=== PATIENT | male | born 1930 | race African-American/Black ===

== ENCOUNTER 2018-01-26 11:29 | Inpatient (IN) | payer MEDICARE, MEDICAID ==
[~2018-01-26] VITALS: Ht 170.2 cm; Wt 70.3 kg
[~2018-01-26 11:29] MED LIST: ADVAIR 250-501 EACH INH; CARVEDILOL12.5 MG ORAL; FUROSEMIDE40 MG ORAL; LISINOPRIL20 MG ORAL; NAMENDA XR21 MG PO; OMEPRAZOLE20 M2 ORAL; ROPINIROLE HC0.25 MG PO; SPIRIVA18 MCG INH
[2018-01-26 11:42] VITALS: BP 84/52
--- NOTE | 2018-01-26 11:51 | Emergency Room Report ---
History of Present Illness General Chief Complaint: Dyspnea/Respdistress Source: Patient Present Illness HPI Patient presents with weakness and right great toe pain. This been going on for several days. He is unable to ambulate at this time. He's been eating okay. He's never had pain like this before. The pain is 9/10 at this time, burning and constant. He also feels weak on his feet like his legs are "giving way" on him. He takes a blood pressure medication and took dose this AM. The patient denies chest pain, palpitations, nausea, vomiting, diarrhea, dysuria , melena. No rashes. Denies depression. H/O CHF in past. Prior renal function minimally elevated. Allergies: Coded Allergies: NO KNOWN DRUG ALLERGIES (Verified Allergy, Unknown, 06/20/15) Patient History Past Medical History: see triage record Social History: Denies: smoking - former, alcohol use, drug use Social History Narrative assisted living Reviewed Nursing Documentation: PMH: Agreed; PSxH: Agreed Nursing Documentation-PMH Past Medical History: No History, Except For Hx Cardiac Problems: Yes - CHF Hx Hypertension: Yes Hx Asthma: Yes Hx COPD: Yes Hx Cancer: No Hx Gastrointestinal Problems: Yes Hx Neurological Problems: Yes - Seizure Hx Cerebrovascular Accident: Yes Review of Systems All Other Systems: negative except mentioned in HPI Physical Exam Vital Signs Date Time Temp Pulse Resp B/P (MAP) Pulse Ox O2 Delivery O2 Flow Rate FiO2 01/26/18 11:30 98.4 62 22 84/52 89 Nasal Cannula 2.0 98.4 Sp02 EP Interpretation: reviewed, normal General Appearance: well appearing, no apparent distress, GCS 15, thin Head: normocephalic Eyes: bilateral eye normal inspection, bilateral eye PERRL ENT: moist mucus membranes Neck: supple Respiratory: lungs clear, normal breath sounds Cardiovascular #1: regular rate, rhythm Cardiovascular #2: 2+ radial (R) Gastrointestinal: normal inspection, normal bowel sounds, non tender, no mass, non-distended, scaphoid Genitourinary: no CVA tenderness Musculoskeletal: back normal, gait/station normal, normal range of motion, tender - 1st MTP R foot Neurologic: alert, oriented x3, grossly normal Psychiatric: mood/affect normal Skin: normal inspection, warm/dry, other - no erythema or warmth 1st MTP Right foot Medical Decision Making Diagnostic Impression: Primary Impression: Acute renal failure Qualified Codes: N17.9 - Acute kidney failure, unspecified Additional Impressions: Podagra Hypotension (arterial) Qualified Codes: I95.9 - Hypotension, unspecified Uremia ER Course Patient presents with bilateral leg weakness, hypotension and pain in his first metatarsal phalangeal joint on the right-hand side. Differential includes AMI, dehydration, sepsis, acute renal failure, electrolyte abnormalities, gallops amongst others. The patient will be evaluated with labs, EKG, chest x-ray. The patient will receive gentle IV hydration and dose of Toradol. EKG with sinus bradycardia and nonspecific ST-T wave changes. Chest x-ray tortuous aorta and some COPD. No infiltrates. Foot x-ray is remarkable for degenerative changes. Labs new renal failure with BUN of 110 creatinine of 3.8. The last results we have mild renal insufficiency from 2015. In addition of uric acid is 10.1 securing a diagnosis of gout. The patient is somewhat improved after Toradol in terms of pain. Colchicine is given to the patient also. Due to renal failure, transient hypotension, admit telemetry. Calling Dr. Perez. Dr. Perez accepts patient. Dr. Perez examined patient in ED. Laboratory Tests Test 01/26/18 12:10 White Blood Count 5.7 K/UL (4.8-10.8) Red Blood Count 3.84 M/UL (4.70-6.10) L Hemoglobin 12.0 G/DL (14.2-18.0) L Hematocrit 36.2 % (42.0-52.0) L Mean Corpuscular Volume 94 FL (80-99) Mean Corpuscular Hemoglobin 31.1 PG (27.0-31.0) H Mean Corpuscular Hemoglobin Concent 33.0 G/DL (32.0-36.0) Red Cell Distribution Width 13.9 % (11.6-14.8) Platelet Count 131 K/UL (150-450) L Mean Platelet Volume 6.4 FL (6.5-10.1) L Neutrophils (%) (Auto) 57.5 % (45.0-75.0) Lymphocytes (%) (Auto) 27.4 % (20.0-45.0) Monocytes (%) (Auto) 10.7 % (1.0-10.0) H Eosinophils (%) (Auto) 3.5 % (0.0-3.0) H Basophils (%) (Auto) 1.0 % (0.0-2.0) Erythrocyte Sedimentation Rate 38 MM/HR (0-20) H Prothrombin Time 12.1 SEC (9.30-11.50) H Prothrombin Time INR 1.2 (0.9-1.1) H PTT 25 SEC (23-33) Urine Color Pale yellow Urine Appearance Clear Urine pH 5 (4.5-8.0) Urine Specific [place] 1.015 (1.005-1.035) Urine Protein Negative (NEGATIVE) Urine Glucose (UA) Negative (NEGATIVE) Urine Ketones Negative (NEGATIVE) Urine Occult Blood Negative (NEGATIVE) Urine Nitrite Negative (NEGATIVE) Urine Bilirubin Negative (NEGATIVE) Urine Urobilinogen Normal MG/DL (0.0-1.0) Urine Leukocyte Esterase Negative (NEGATIVE) Sodium Level 139 MMOL/L (136-145) Potassium Level 4.4 MMOL/L (3.5-5.1) Chloride Level 106 MMOL/L (98-107) Carbon Dioxide Level 16 MMOL/L (21-32) L Anion Gap 17 mmol/L (5-15) H Blood Urea Nitrogen 110 mg/dL (7-18) H Creatinine 3.8 MG/DL (0.55-1.30) H Estimate Glomerular Filtration Rate mL/min (>60) Glucose Level 91 MG/DL (74-106) Uric Acid 10.7 MG/DL (2.6-7.2) H Calcium Level 8.8 MG/DL (8.5-10.1) Total Bilirubin 0.4 MG/DL (0.2-1.0) Aspartate Amino Transferase (AST) 19 U/L (15-37) Alanine Aminotransferase (ALT) 21 U/L (12-78) Alkaline Phosphatase 45 U/L (46-116) L Total Creatine Kinase 216 U/L (26-308) Troponin I 0.047 ng/mL (0.000-0.056) Pro-B-Type Natriuretic Peptide 1230 pg/mL (0-125) H Total Protein 7.5 G/DL (6.4-8.2) Albumin 3.8 G/DL (3.4-5.0) Globulin 3.7 g/dL Albumin/Globulin Ratio 1.0 (1.0-2.7) Thyroid Stimulating Hormone (TSH) 1.236 uiU/mL (0.358-3.740) EKG Diagnostic Results Rate: bradycardiac ST Segments: no acute changes Rhythm Strip Diag. Results EP Interpretation: yes Rhythm: no PVC's, no ectopy, other - Sinus bradycardia Chest X-Ray Diagnostic Results Chest X-Ray Diagnostic Results : Chest X-Ray Ordered: Yes # of Views/Limited/Complete: 1 View Indication: Other Interpretation: no consolidation, no effusion, no pneumothorax, other - Tortuous aorta Impression: Other Electronically Signed by: Electronically signed by Alex Zhou MD Other X-Ray Diagnostic Results Other X-Ray Diagnostic Results : X-Ray ordered: Right foot # of Views/Limited Vs Complete: 3 View Indication: Pain Interpretation: no dislocation, no soft tissue swelling, no fractures, other - Degenerative disease Impression: Other Electronically Signed by: Electronically signed by Alex Zhou MD Last Vital Signs Date Time Temp Pulse Resp B/P (MAP) Pulse Ox O2 Delivery O2 Flow Rate FiO2 01/26/18 18:22 98.6 58 20 118/60 89 Nasal Cannula 2.0 98.6 Status: unchanged Disposition: ADMITTED INPATIENT Condition: Serious Alex Zhou M.D. Jan 26, 2018 11:51
[2018-01-26] MEDS ORDERED: Ketorolac 30mg Inj IV ONE (12:00)
[2018-01-26] MEDS ORDERED: Sodium Chloride 500ML 500 ML IV ONE (12:00)
[2018-01-26 12:33] LABS: EOSINOPHILS % (AUTO) 3.5 % (0.0-3.0); HEMATOCRIT 36.2 % (42.0-52.0); LYMPHOCYTES % (AUTO) 27.4 % (20.0-45.0); MEAN CORPUSCULAR VOLUME 94 FL (80-99); MONOCYTES % (AUTO) 10.7 % (1.0-10.0); NEUTROPHILS % (AUTO) 57.5 % (45.0-75.0); PLATELET COUNT 131 K/UL (150-450); RED BLOOD COUNT 3.84 M/UL (4.70-6.10); RED CELL DISTRIBUTION WIDTH 13.9 % (11.6-14.8); WHITE BLOOD COUNT 5.7 K/UL (4.8-10.8)
[2018-01-26 12:37] LABS: APPEARANCE,URINE CLEAR; BILIRUBIN, URINE NEGATIVE (NEGATIVE); COLOR,URINE PALE YELLOW; GLUCOSE, URINE (UA) NEGATIVE (NEGATIVE); KETONES,URINE NEGATIVE (NEGATIVE); LEUKOCYTE ESTERASE ,URINE NEGATIVE (NEGATIVE); NITRITE,URINE NEGATIVE (NEGATIVE); PH,URINE 5 (4.5-8.0); PROTEIN,URINE NEGATIVE (NEGATIVE); UROBILINOGEN,URINE NORMAL MG/DL (0.0-1.0)
[2018-01-26 12:39] LABS: INR 1.2 (0.9-1.1)
[2018-01-26 12:43] LABS: ANION GAP 17 mmol/L (5-15); BLOOD UREA NITROGEN 110 mg/dL (7-18); CALCIUM 8.8 MG/DL (8.5-10.1); CARBON DIOXIDE 16 MMOL/L (21-32); CHLORIDE 106 MMOL/L (98-107); CREATININE 3.8 MG/DL (0.55-1.30); POTASSIUM 4.4 MMOL/L (3.5-5.1); SODIUM 139 MMOL/L (136-145)
[2018-01-26 12:55] LABS: ALANINE AMINOTRANSFERASE 21 U/L (12-78); ALBUMIN 3.8 G/DL (3.4-5.0); ALKALINE PHOSPHATASE 45 U/L (46-116); ASPARTATE AMINO TRANSFERASE 19 U/L (15-37); BILIRUBIN,TOTAL 0.4 MG/DL (0.2-1.0); CREATINE KINASE 216 U/L (26-308)
--- NOTE | 2018-01-26 13:29 | Diagnostic Imaging Report ---
Indication: Chest pain Comparison: 06/20/2015 A single view chest radiograph was obtained. Findings: Lungs are clear. Aorta is moderately ectatic. Heart size is normal. Bones are unremarkable. IMPRESSION: No acute disease
--- NOTE | 2018-01-26 13:52 | Diagnostic Imaging Report ---
Indication: Foot Pain Comparison: None Findings: 3 views of the right foot were obtained. No acute fractures, malalignment, erosions or periostitis are identified. Soft tissues are unremarkable. Impression: No acute findings.
[2018-01-26 15:29] VITALS: BP 108/51
[2018-01-26] MEDS ORDERED: Albuterol/Ipratropium 3ml neb HHN PRN (15:45)
[2018-01-26 16:52] VITALS: BP 112/58
[2018-01-26 18:22] VITALS: BP 118/60
[2018-01-26] MEDS: Heparin 5000 units/ml inj SUBQ SCH (21:00)
[2018-01-26 21:23] VITALS: BP 136/72
[2018-01-26 21:35] VITALS: BP 134/83
[2018-01-27] VITALS: BP 122/77
--- NOTE | 2018-01-27 00:17 | History and Physical Report ---
DATE OF ADMISSION: 01/26/2018 CHIEF COMPLAINT: Weakness. HISTORY OF PRESENT ILLNESS: The patient is an 87-year-old male, who lives in a [facility]. The patient has multiple medical problems. I saw this patient last week during routine visit to his [facility]. The patient was at his usual baseline. During the last three weeks, the patient has noticed decline in his health. The patient noticed increased fatigue. His appetite decreased significantly. The patient became bedridden. He denies shortness of breath. The patient was sent to this emergency department. PAST MEDICAL HISTORY: 1. 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 2. 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 3. Hypertensive cardiovascular disease. 4. Chronic obstructive pulmonary disease. 5. Mild organic brain syndrome. MEDICATIONS: Coreg, Lasix, lisinopril, Namenda, omeprazole, ropinirole, Advair Diskus, and Spiriva. ALLERGIES: No known drug allergies. FAMILY HISTORY: Unremarkable. SOCIAL HISTORY: He lives in a [facility]. HABITS: He is a past heavy cigarette smoker, who quit several years ago. REVIEW OF SYSTEMS: HEENT: Hearing and eyesight are normal. ENDOCRINE: No history of diabetes, thyroid, or adrenal problems. RESPIRATORY: Significant for orthopnea, PND and dyspnea on slight efforts. GASTROINTESTINAL : No history of hematochezia, melena, hematemesis, diarrhea, or constipation. MUSCULOSKELETAL: Significant for mild degenerative joint disease. NEUROLOGICAL: No history of stroke, syncope, or Parkinson disease. PHYSICAL EXAMINATION: GENERAL: This is an elderly male, who is currently in no acute distress. VITAL SIGNS: Blood pressure 84/52, pulse 62 and regular, respirations 22, temperature 98.4, and O2 saturation is 92% on 2 liters/minute nasal cannula. HEENT: The head is normocephalic and atraumatic. Pupils are equal, round, and reactive to light and accommodation consensually. NECK: Supple. Trachea midline. There was no lymphadenopathy or thyromegaly. LUNGS: Bilateral crackles. HEART: Regular rate and rhythm without rubs, murmurs, or gallops. ABDOMEN: Soft and nontender. Bowel sounds were active. EXTREMITIES: Cold to touch. No clubbing, cyanosis, or edema were noted. NEUROLOGICAL: He is alert and oriented x4. Cranial nerves II through XII intact. LABORATORY AND ANCILLARY DATA: CBC, hemoglobin 12, otherwise within normal limits. Serum chemistry, electrolytes within normal limits. Anion gap 17. BUN 110 and creatinine 3.8. Uric acid 10.7. Zko-A-bgfwvqmovaj peptide 1230. IMAGING REPORTS: An x-ray of the foot, no acute findings. Chest x-ray, lungs are clear. 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 ASSESSMENT: 1. Volume depletion. 2. Acute decline in GFR due to prerenal azotemia, most likely due to over diuresis. 3. 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 Systolic LV Dysfunction. 4. 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 5. Hypertensive cardiovascular disease. 6. Chronic obstructive pulmonary disease. 7. Mild organic brain syndrome. 8. NYHA Class 3. PLAN: 1. Cautious IV fluid rehydration. 2. Of note, the patient received Toradol IV in the emergency department and currently high risk for ATN. 3. Patient was declined before for AICD but my need to be reconsidered. Shi Perez M.D. DR: CHERIE JOB#: [id number] CC: CATA
[2018-01-27 04:00] VITALS: BP 128/69
[2018-01-27 07:58] LABS: BASOPHILS % (AUTO) 2.3 % (0.0-2.0); EOSINOPHILS % (AUTO) 4.1 % (0.0-3.0); HEMATOCRIT 37.3 % (42.0-52.0); HEMOGLOBIN 12.3 G/DL (14.2-18.0); LYMPHOCYTES % (AUTO) 26.1 % (20.0-45.0); MEAN CORPUSCULAR VOLUME 95 FL (80-99); MONOCYTES % (AUTO) 12.2 % (1.0-10.0); NEUTROPHILS % (AUTO) 55.4 % (45.0-75.0); PLATELET COUNT 127 K/UL (150-450); RED BLOOD COUNT 3.93 M/UL (4.70-6.10); RED CELL DISTRIBUTION WIDTH 14.4 % (11.6-14.8); WHITE BLOOD COUNT 5.1 K/UL (4.8-10.8)
[2018-01-27 08:00] VITALS: BP 113/53
[2018-01-27 08:30] LABS: ANION GAP 16 mmol/L (5-15); BLOOD UREA NITROGEN 97 mg/dL (7-18); CARBON DIOXIDE 17 MMOL/L (21-32); CHLORIDE 110 MMOL/L (98-107); CREATININE 2.8 MG/DL (0.55-1.30); SODIUM 142 MMOL/L (136-145)
--- NOTE | 2018-01-27 08:32 | Nephrology Progress Note ---
Assessment/Plan Plan Severe Volume depletion - slow hydration. Cautious with h/o severe CHF! (LVEF 20 %). 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 Subjective Subjective Feels better. Better urine output. Positional dizziness. Objective Objective Last 24 Hour Vital Signs Date Time Temp Pulse Resp B/P (MAP) Pulse Ox O2 Delivery O2 Flow Rate FiO2 01/27/18 04:00 46 01/27/18 04:00 97.0 68 20 128/69 (88) 97 97.0 01/27/18 02:45 Nasal Cannula 2.0 01/27/18 00:00 96.8 63 20 122/77 (92) 96 96.8 01/27/18 00:00 55 01/26/18 21:40 97.6 55 22 134/83 97 Nasal Cannula 2.0 97.6 56 01/26/18 21:35 97.6 56 22 134/83 (100) 97 97.6 01/26/18 21:23 97.8 55 16 136/72 90 Nasal Cannula 2.0 97.8 01/26/18 18:22 98.6 58 20 118/60 89 Nasal Cannula 2.0 98.6 01/26/18 16:52 98.6 62 22 112/58 88 Nasal Cannula 2.0 98.6 01/26/18 15:29 98.6 60 22 108/51 89 Nasal Cannula 2.0 98.6 01/26/18 12:13 98.4 01/26/18 11:42 98.4 62 22 84/52 89 Nasal Cannula 2.0 98.4 01/26/18 11:42 62 22 Nasal Cannula 2.0 01/26/18 11:30 98.4 62 22 84/52 89 Nasal Cannula 2.0 98.4 Intake and Output 01/26/18 01/27/18 19:00 07:00 Output Total 0 ml Balance 0 ml Output Urine Total 0 ml # Voids 1 Laboratory Tests 01/26/18 12:10: White Blood Count 5.7, Red Blood Count 3.84L, Hemoglobin 12.0L, Hematocrit 36.2L , Mean Corpuscular Volume 94, Mean Corpuscular Hemoglobin 31.1H, Mean Corpuscular Hemoglobin Concent 33.0, Red Cell Distribution Width 13.9, Platelet Count 131L, Mean Platelet Volume 6.4L, Neutrophils (%) (Auto) 57.5, Lymphocytes (%) (Auto) 27.4, Monocytes (%) (Auto) 10.7H, Eosinophils (%) (Auto) 3.5H, Basophils (%) (Auto) 1.0, Erythrocyte Sedimentation Rate 38H, Prothrombin Time 12.1H, Prothromb Time International Ratio 1.2H, Activated Partial Thromboplast Time 25, Urine Color Pale yellow, Urine Appearance Clear, Urine pH 5, Urine Specific [place] 1.015, Urine Protein Negative, Urine Glucose (UA) Negative, Urine Ketones Negative, Urine Occult Blood Negative, Urine Nitrite Negative, Urine Bilirubin Negative, Urine Urobilinogen Normal, Urine Leukocyte Esterase Negative, Sodium Level 139, Potassium Level 4.4, Chloride Level 106, Carbon Dioxide Level 16L, Anion Gap 17H, Blood Urea Nitrogen 110H, Creatinine 3.8H, Estimat Glomerular Filtration Rate , Glucose Level 91, Uric Acid 10.7H, Calcium Level 8.8, Total Bilirubin 0.4, Aspartate Amino Transf (AST/SGOT) 19, Alanine Aminotransferase (ALT/SGPT) 21, Alkaline Phosphatase 45L, Total Creatine Kinase 216, Troponin I 0.047, Pro-B-Type Natriuretic Peptide 1230H, Total Protein 7.5, Albumin 3.8, Globulin 3.7, Albumin/Globulin Ratio 1.0, Thyroid Stimulating Hormone (TSH) 1.236 01/26/18 19:31: Lactic Acid Level 0.30L 01/27/18 07:10: White Blood Count 5.1, Red Blood Count 3.93L, Hemoglobin 12.3L, Hematocrit 37.3L , Mean Corpuscular Volume 95, Mean Corpuscular Hemoglobin 31.4H, Mean Corpuscular Hemoglobin Concent 33.0, Red Cell Distribution Width 14.4, Platelet Count 127L, Mean Platelet Volume 6.6, Neutrophils (%) (Auto) 55.4, Lymphocytes ( %) (Auto) 26.1, Monocytes (%) (Auto) 12.2H, Eosinophils (%) (Auto) 4.1H, Basophils (%) (Auto) 2.3H, Sodium Level [Pending], Potassium Level [Pending], Chloride Level [Pending], Carbon Dioxide Level [Pending], Blood Urea Nitrogen [ Pending], Creatinine [Pending], Estimat Glomerular Filtration Rate [Pending], Glucose Level [Pending], Calcium Level [Pending] Height (Feet): 5 Height (Inches): 7.00 Weight (Pounds): 152 Objective Hard of hearing. CV RR Lungs CTA Abd SNT. BS + E no CCE Shi Perez MD Jan 27, 2018 08:32
[2018-01-27] MEDS: Heparin 5000 units/ml inj SUBQ SCH ×2 (08:34→20:53)
[2018-01-27] MEDS: Aspirin EC 325mg tab ORAL SCH (08:43)
[2018-01-27 12:00] VITALS: BP 119/61
[2018-01-27 16:09] VITALS: BP 109/54
[2018-01-27 20:00] VITALS: BP 147/55
[2018-01-28] VITALS: BP 127/56
[2018-01-28 04:00] VITALS: BP 137/60
[2018-01-28 07:54] LABS: BASOPHILS % (AUTO) 2.6 % (0.0-2.0); EOSINOPHILS % (AUTO) 8.9 % (0.0-3.0); HEMATOCRIT 38.9 % (42.0-52.0); HEMOGLOBIN 12.9 G/DL (14.2-18.0); LYMPHOCYTES % (AUTO) 31.6 % (20.0-45.0); MEAN CORPUSCULAR VOLUME 96 FL (80-99); MONOCYTES % (AUTO) 11.7 % (1.0-10.0); NEUTROPHILS % (AUTO) 45.2 % (45.0-75.0); PLATELET COUNT 130 K/UL (150-450); RED BLOOD COUNT 4.07 M/UL (4.70-6.10); RED CELL DISTRIBUTION WIDTH 14.3 % (11.6-14.8); WHITE BLOOD COUNT 4.4 K/UL (4.8-10.8)
[2018-01-28 08:00] VITALS: BP 128/71
[2018-01-28 08:15] LABS: ANION GAP 14 mmol/L (5-15); BLOOD UREA NITROGEN 73 mg/dL (7-18); CALCIUM 8.1 MG/DL (8.5-10.1); CARBON DIOXIDE 17 MMOL/L (21-32); CHLORIDE 110 MMOL/L (98-107); POTASSIUM 3.9 MMOL/L (3.5-5.1); SODIUM 141 MMOL/L (136-145)
--- NOTE | 2018-01-28 08:54 | Nephrology Progress Note ---
Assessment/Plan Plan Severe Volume depletion - slow hydration. Cautious with h/o severe CHF! (LVEF 20 %). Severe Syslotic CMP JASS on CKD - monitor labs BUN down to 73 creat nu to 2. Stop IV hydration. Subjective Subjective Feels better. Better urine output. Positional dizziness. Objective Objective Last 24 Hour Vital Signs Date Time Temp Pulse Resp B/P (MAP) Pulse Ox O2 Delivery O2 Flow Rate FiO2 01/28/18 04:17 51 01/28/18 04:00 97.2 51 20 137/60 (85) 100 97.2 01/28/18 00:00 97.0 51 20 127/56 (79) 98 97.0 01/27/18 23:59 49 01/27/18 21:22 58 20 Nasal Cannula 2.0 28 01/27/18 21:21 Nasal Cannula 2.0 28 01/27/18 21:21 98 Nasal Cannula 2.0 28 01/27/18 21:00 Nasal Cannula 2.0 01/27/18 20:00 97.0 58 18 147/55 (85) 98 97.0 01/27/18 19:45 51 01/27/18 16:09 97.8 58 18 109/54 (72) 98 97.8 01/27/18 16:00 47 01/27/18 12:00 97.9 71 18 119/61 (80) 97 97.9 01/27/18 12:00 50 01/27/18 09:00 Nasal Cannula 2.0 Intake and Output 01/27/18 01/28/18 19:00 07:00 Output Total 900 ml Balance -900 ml Output Urine Total 900 ml # Voids 3 Laboratory Tests 01/28/18 06:35: White Blood Count 4.4L, Red Blood Count 4.07L, Hemoglobin 12.9L, Hematocrit 38.9L, Mean Corpuscular Volume 96, Mean Corpuscular Hemoglobin 31.7H, Mean Corpuscular Hemoglobin Concent 33.1, Red Cell Distribution Width 14.3, Platelet Count 130L, Mean Platelet Volume 6.5, Neutrophils (%) (Auto) 45.2, Lymphocytes ( %) (Auto) 31.6, Monocytes (%) (Auto) 11.7H, Eosinophils (%) (Auto) 8.9H, Basophils (%) (Auto) 2.6H, Sodium Level 141, Potassium Level 3.9, Chloride Level 110H, Carbon Dioxide Level 17L, Anion Gap 14, Blood Urea Nitrogen 73H, Creatinine 2.0H, Estimat Glomerular Filtration Rate , Glucose Level 75, Calcium Level 8.1L Height (Feet): 5 Height (Inches): 7.00 Weight (Pounds): 152 Objective Hard of hearing. CV RR Lungs CTA Abd SNT. BS + E no CCE Shi Perez MD Jan 28, 2018 08:54
[2018-01-28] MEDS: Aspirin EC 325mg tab ORAL SCH (09:39)
[2018-01-28] MEDS: Heparin 5000 units/ml inj SUBQ SCH ×2 (09:41→21:01)
[2018-01-28 12:00] VITALS: BP 117/75
[2018-01-28 16:00] VITALS: BP 121/69
[2018-01-28 20:00] VITALS: BP 138/72
[2018-01-29] VITALS: BP 135/55
[2018-01-29 04:00] VITALS: BP 139/70
[2018-01-29 07:38] LABS: BASOPHILS % (AUTO) 2.2 % (0.0-2.0); EOSINOPHILS % (AUTO) 7.9 % (0.0-3.0); HEMATOCRIT 40.8 % (42.0-52.0); HEMOGLOBIN 13.4 G/DL (14.2-18.0); LYMPHOCYTES % (AUTO) 31.1 % (20.0-45.0); MEAN CORPUSCULAR VOLUME 95 FL (80-99); MONOCYTES % (AUTO) 13.8 % (1.0-10.0); PLATELET COUNT 148 K/UL (150-450); RED BLOOD COUNT 4.29 M/UL (4.70-6.10); RED CELL DISTRIBUTION WIDTH 14.2 % (11.6-14.8); WHITE BLOOD COUNT 4.8 K/UL (4.8-10.8)
[2018-01-29 08:00] VITALS: BP 114/53
[2018-01-29 08:10] LABS: ANION GAP 10 mmol/L (5-15); BLOOD UREA NITROGEN 50 mg/dL (7-18); CALCIUM 8.4 MG/DL (8.5-10.1); CARBON DIOXIDE 22 MMOL/L (21-32); CHLORIDE 110 MMOL/L (98-107); CREATININE 1.5 MG/DL (0.55-1.30); POTASSIUM 3.9 MMOL/L (3.5-5.1); SODIUM 142 MMOL/L (136-145)
--- NOTE | 2018-01-29 09:06 | Nephrology Progress Note ---
Assessment/Plan Plan Severe Volume depletion - slow hydration. Cautious with h/o severe CHF! (LVEF 20 %). Severe Syslotic CMP JASS on CKD - monitor labs BUN down to 50's creat nu to 1.5. Stop IV hydration. Subjective Subjective Feels better. Better urine output. Positional dizziness. Objective Objective Last 24 Hour Vital Signs Date Time Temp Pulse Resp B/P (MAP) Pulse Ox O2 Delivery O2 Flow Rate FiO2 01/29/18 04:00 98.0 55 21 139/70 (93) 99 98.0 01/29/18 03:59 53 01/29/18 00:00 97.0 55 20 135/55 (81) 98 97.0 01/28/18 23:30 56 01/28/18 21:00 Nasal Cannula 2.0 01/28/18 20:38 96 Nasal Cannula 2.0 28 01/28/18 20:38 Nasal Cannula 2.0 28 01/28/18 20:38 63 20 Nasal Cannula 2.0 28 01/28/18 20:00 55 55 62 01/28/18 20:00 98.0 55 20 138/72 (94) 97 98.0 01/28/18 19:06 56 01/28/18 16:00 63 01/28/18 16:00 97.7 58 18 121/69 (86) 100 97.7 01/28/18 12:00 97.3 51 19 117/75 (89) 100 97.3 01/28/18 12:00 51 Intake and Output 01/28/18 01/29/18 19:00 07:00 Intake Total 1240 ml 840 ml Output Total 2100 ml Balance 1240 ml -1260 ml Intake Oral 840 ml 840 ml IV Total 400 ml Output Urine Total 2100 ml # Voids 6 6 # Bowel Movements 1 Laboratory Tests 01/29/18 06:15: White Blood Count 4.8, Red Blood Count 4.29L, Hemoglobin 13.4L, Hematocrit 40.8L , Mean Corpuscular Volume 95, Mean Corpuscular Hemoglobin 31.2H, Mean Corpuscular Hemoglobin Concent 32.8, Red Cell Distribution Width 14.2, Platelet Count 148L, Mean Platelet Volume 7.0, Neutrophils (%) (Auto) 45.0, Lymphocytes ( %) (Auto) 31.1, Monocytes (%) (Auto) 13.8H, Eosinophils (%) (Auto) 7.9H, Basophils (%) (Auto) 2.2H, Sodium Level 142, Potassium Level 3.9, Chloride Level 110H, Carbon Dioxide Level 22, Anion Gap 10, Blood Urea Nitrogen 50H, Creatinine 1.5H, Estimat Glomerular Filtration Rate , Glucose Level 80, Calcium Level 8.4L Height (Feet): 5 Height (Inches): 7.00 Weight (Pounds): 152 Objective Hard of hearing. CV RR Lungs CTA Abd SNT. BS + E no CCE Shi Perez MD Jan 29, 2018 09:06
[2018-01-29] MEDS: Aspirin EC 325mg tab ORAL SCH (09:21)
[2018-01-29] MEDS: Heparin 5000 units/ml inj SUBQ SCH ×2 (09:21→20:24)
[2018-01-29 12:00] VITALS: BP 118/54
--- NOTE | 2018-01-29 12:20 | Cardiology Report ---
APPROVED REPORT EKG Measurement Heart [id number] Sinus bradycardia Otherwise normal ECG
--- NOTE | 2018-01-29 13:15 | Cardiology Report ---
APPROVED REPORT EXAM: Two-dimensional and M-mode echocardiogram with Doppler and color Doppler. INDICATION Congestive Heart Failure M-Mode DIMENSIONS IVSd1.5 (0.7-1.1cm)Left Atrium (MM)5.5 (1.6-4.0cm) LVDd5.1 (3.5-5.6cm)Aortic Root3.5 (2.0-3.7cm) PWd1.2 (0.7-1.1cm)Aortic Cusp Exc.2.2 (1.5-2.0cm) LVDs3.7 (2.5-4.0cm) PWs1.9 cm Normal left ventricular chamber size, systolic function and wall motion. Left ventricular ejection fraction estimated to be 55 %. Mild left ventricular hypertrophy. Anterior Echo-free space, may be due to pericardial fat or effusion. All other cardiac chamber sizes are within normal limits. Mobile Umttd-Dfhove-Zldmeq motion. Focal aortic valve sclerosis with mildly reduced cusp excursion. Mildly thickened mitral valve leaflets with normal excursion. Mild mitral annulus and aortic root calcification. Pulmonic valve not well visualized. Normal tricuspid valve structure. IVC is normal in size with physiological collapse. A color flow and spectral Doppler study was performed and revealed: Moderate aortic insufficiency. Peak aortic valve gradient of 10 mmHg and a mean of 5 mmHg. Trace mitral regurgitation. Mitral diastolic velocities suggest mild left ventricular diastolic dysfunction (Grade I). Mild tricuspid regurgitation. Tricuspid systolic velocities suggests peak right ventricular systolic pressure of 52 mmHg, consistent with moderate pulmonary hypertension. No pulmonic regurgitation present.
[2018-01-29 15:47] VITALS: BP 131/67
[2018-01-29 20:00] VITALS: BP 120/49
[2018-01-30] VITALS: BP 117/51
[2018-01-30 04:00] VITALS: BP 155/72
[2018-01-30 07:17] LABS: BASOPHILS % (AUTO) 2.1 % (0.0-2.0); EOSINOPHILS % (AUTO) 7.5 % (0.0-3.0); HEMATOCRIT 37.1 % (42.0-52.0); HEMOGLOBIN 12.6 G/DL (14.2-18.0); LYMPHOCYTES % (AUTO) 31.5 % (20.0-45.0); MEAN CORPUSCULAR VOLUME 95 FL (80-99); MONOCYTES % (AUTO) 12.2 % (1.0-10.0); NEUTROPHILS % (AUTO) 46.7 % (45.0-75.0); PLATELET COUNT 139 K/UL (150-450); RED BLOOD COUNT 3.93 M/UL (4.70-6.10); RED CELL DISTRIBUTION WIDTH 14.3 % (11.6-14.8); WHITE BLOOD COUNT 5.4 K/UL (4.8-10.8)
[2018-01-30 07:52] LABS: ANION GAP 5 mmol/L (5-15); CALCIUM 8.2 MG/DL (8.5-10.1); CARBON DIOXIDE 25 MMOL/L (21-32); CHLORIDE 111 MMOL/L (98-107); CREATININE 1.3 MG/DL (0.55-1.30); POTASSIUM 4.5 MMOL/L (3.5-5.1); SODIUM 141 MMOL/L (136-145)
[2018-01-30 07:58] LABS: BLOOD UREA NITROGEN 41 mg/dL (7-18)
[2018-01-30 08:00] VITALS: BP 109/52
[2018-01-30] MEDS: Heparin 5000 units/ml inj SUBQ SCH ×2 (09:00→20:24)
[2018-01-30] MEDS: Aspirin EC 325mg tab ORAL SCH (09:05)
[2018-01-30 12:00] VITALS: BP 139/61
--- NOTE | 2018-01-30 15:30 | Nephrology Progress Note ---
Assessment/Plan Plan Severe Volume depletion - slow hydration. Cautious with h/o severe CHF! (LVEF 20 %). Severe Syslotic CMP JASS on CKD - monitor labs BUN down to 41 creat nu to 1.3 which is below his baseline!! Has PVCS Check CXR!! Subjective Subjective Feels better. Better urine output. Positional dizziness. Objective Objective Last 24 Hour Vital Signs Date Time Temp Pulse Resp B/P (MAP) Pulse Ox O2 Delivery O2 Flow Rate FiO2 01/30/18 09:00 Nasal Cannula 2.0 01/30/18 08:10 69 01/30/18 08:05 61 01/30/18 08:00 69 01/30/18 08:00 97.5 61 18 109/52 (71) 100 97.5 01/30/18 08:00 61 01/30/18 04:00 61 01/30/18 04:00 98.0 63 21 155/72 (99) 100 98.0 01/30/18 00:00 59 01/30/18 00:00 98.0 56 20 117/51 (73) 100 98.0 01/29/18 21:00 Nasal Cannula 2.0 01/29/18 20:10 73 01/29/18 20:05 65 01/29/18 20:00 58 01/29/18 20:00 98.1 57 20 120/49 (72) 98 98.1 01/29/18 20:00 55 01/29/18 19:18 97 Nasal Cannula 2.0 28 01/29/18 19:18 Nasal Cannula 2.0 28 01/29/18 19:13 68 20 Nasal Cannula 2.0 28 01/29/18 16:00 56 01/29/18 15:47 98.6 68 20 131/67 (88) 100 98.6 Intake and Output 01/29/18 01/30/18 19:00 07:00 Intake Total 960 ml Output Total 650 ml 700 ml Balance 310 ml -700 ml Intake Oral 960 ml Output Urine Total 650 ml 700 ml # Voids 3 Laboratory Tests 01/30/18 06:30: White Blood Count 5.4, Red Blood Count 3.93L, Hemoglobin 12.6L, Hematocrit 37.1L , Mean Corpuscular Volume 95, Mean Corpuscular Hemoglobin 32.0H, Mean Corpuscular Hemoglobin Concent 33.9, Red Cell Distribution Width 14.3, Platelet Count 139L, Mean Platelet Volume 7.3, Neutrophils (%) (Auto) 46.7, Lymphocytes ( %) (Auto) 31.5, Monocytes (%) (Auto) 12.2H, Eosinophils (%) (Auto) 7.5H, Basophils (%) (Auto) 2.1H, Sodium Level 141, Potassium Level 4.5, Chloride Level 111H, Carbon Dioxide Level 25, Anion Gap 5, Blood Urea Nitrogen 41H, Creatinine 1.3, Estimat Glomerular Filtration Rate , Glucose Level 85, Calcium Level 8.2L Height (Feet): 5 Height (Inches): 7.00 Weight (Pounds): 153 Objective Hard of hearing. CV RR Lungs CTA Abd SNT. BS + E no CCE Shi Perez MD Jan 30, 2018 15:29
[2018-01-30 16:00] VITALS: BP 148/59
[2018-01-30 20:00] VITALS: BP 154/61
[2018-01-31] VITALS: BP 159/89
[2018-01-31 04:00] VITALS: BP 145/62
[2018-01-31 08:00] VITALS: BP 123/60
[2018-01-31 08:34] LABS: ANION GAP 6 mmol/L (5-15); BLOOD UREA NITROGEN 32 mg/dL (7-18); CALCIUM 8.3 MG/DL (8.5-10.1); CARBON DIOXIDE 25 MMOL/L (21-32); CHLORIDE 111 MMOL/L (98-107); CREATININE 1.3 MG/DL (0.55-1.30); POTASSIUM 4.7 MMOL/L (3.5-5.1); SODIUM 141 MMOL/L (136-145)
[2018-01-31] MEDS: Heparin 5000 units/ml inj SUBQ SCH ×2 (09:00→21:00)
[2018-01-31] MEDS: Aspirin EC 325mg tab ORAL SCH (09:09)
--- NOTE | 2018-01-31 09:36 | Physician Query ---
--------- THIS DOCUMENT IS A PERMANENT PART OF THE MEDICAL RECORD --------- PLEASE COMPLETE THE DOCUMENT BEFORE SIGNING Dear Dr. Perez Date: 2017 [employer] Name: Joseph Montejo [employer] / [employer] Phone # [phone] Exercise your independent professional judgment when responding to query. Question asked do not imply a particular answer is desired/expected Clinical Documentation States: "Severe CHF" documented in progress notes. Clinical Findings Show: BNP: 1230, Echo: Mild left ventricular diastolic dysfunction, Medications: Furosemide Please Clarify the acuity and type of CHF: Acuity [] Acute [X] Chronic [] Acute on Chronic Type [X] Systolic [] Diastolic [] Systolic & Diastolic (Combined) [] Left Heart failure [] Other: Condition Present on Admission: [X] Yes [] No []Clinically Undeterminable Please also document in your Progress Notes and/or Discharge Summary and indicate if the condition was present on admission. CATA
--- NOTE | 2018-01-31 10:56 | Diagnostic Imaging Report ---
Indication: Dyspnea Comparison: 01/26/2018 A single view chest radiograph was obtained. Findings: Heart size is normal. Aorta is moderately ectatic. Lungs are clear. IMPRESSION: No acute disease
[2018-01-31 12:00] VITALS: BP 142/55
--- NOTE | 2018-01-31 14:02 | Nephrology Progress Note ---
Assessment/Plan Plan Severe Volume depletion - slow hydration. Cautious with h/o severe CHF! (LVEF 20 %). Severe Syslotic CMP JASS on CKD - monitor labs BUN down to 41 creat nu to 1.3 which is below his baseline!! Has PVCS Check CXR - NAD. Optimized. Ambulate! 2D Echo Much improved!!!! Subjective Subjective Feels better. Better urine output. Positional dizziness. Objective Objective Last 24 Hour Vital Signs Date Time Temp Pulse Resp B/P (MAP) Pulse Ox O2 Delivery O2 Flow Rate FiO2 01/31/18 12:00 98.0 58 20 142/55 (84) 91 98.0 01/31/18 12:00 74 01/31/18 09:00 Nasal Cannula 2.0 01/31/18 08:00 72 01/31/18 08:00 98.7 71 20 123/60 (81) 92 98.7 01/31/18 07:10 95 Nasal Cannula 2.0 28 01/31/18 07:10 71 18 Nasal Cannula 2.0 28 01/31/18 07:10 Nasal Cannula 2.0 28 01/31/18 04:00 98.0 59 16 145/62 (89) 99 98.0 01/31/18 04:00 57 01/31/18 00:00 97.0 65 20 159/89 (112) 97 97.0 01/31/18 00:00 56 01/30/18 21:00 Nasal Cannula 2.0 01/30/18 20:25 100 Nasal Cannula 2.0 28 01/30/18 20:25 Nasal Cannula 2.0 28 01/30/18 20:25 62 18 Nasal Cannula 2.0 28 01/30/18 20:00 53 01/30/18 20:00 59 62 73 01/30/18 20:00 98.3 60 20 154/61 (92) 100 98.3 01/30/18 16:00 59 01/30/18 16:00 97.8 57 18 148/59 (88) 100 97.8 Intake and Output 01/30/18 01/31/18 19:00 07:00 Intake Total 960 ml 240 ml Output Total 800 ml 800 ml Balance 160 ml -560 ml Intake Oral 960 ml 240 ml Output Urine Total 800 ml 800 ml Laboratory Tests 01/31/18 07:30: Sodium Level 141, Potassium Level 4.7, Chloride Level 111H, Carbon Dioxide Level 25, Anion Gap 6, Blood Urea Nitrogen 32H, Creatinine 1.3, Estimat Glomerular Filtration Rate , Glucose Level 88, Calcium Level 8.3L, Magnesium Level 1.8 Height (Feet): 5 Height (Inches): 7.00 Weight (Pounds): 155 Objective Hard of hearing. CV RR Lungs CTA Abd SNT. BS + E no CCE Shi Perez MD Jan 31, 2018 14:02
[2018-01-31 16:00] VITALS: BP 164/84
[2018-01-31 20:00] VITALS: BP 155/72
[2018-01-31] MEDS: Lomotil 2.5mg tab ORAL SCH (22:00)
--- NOTE | 2018-01-31 22:00 | Cardiology Progress Note ---
Subjective Subjective [id number] Objective Last 24 Hour Vital Signs Date Time Temp Pulse Resp B/P (MAP) Pulse Ox O2 Delivery O2 Flow Rate FiO2 01/31/18 20:00 73 01/31/18 20:00 97.6 74 18 155/72 (99) 100 97.6 01/31/18 16:00 98.0 73 20 164/84 (110) 97 98.0 01/31/18 16:00 69 01/31/18 12:00 98.0 58 20 142/55 (84) 91 98.0 01/31/18 12:00 74 01/31/18 09:00 Nasal Cannula 2.0 01/31/18 08:10 81 01/31/18 08:05 73 01/31/18 08:00 72 01/31/18 08:00 98.7 71 20 123/60 (81) 92 98.7 01/31/18 08:00 73 01/31/18 07:10 95 Nasal Cannula 2.0 28 01/31/18 07:10 71 18 Nasal Cannula 2.0 28 01/31/18 07:10 Nasal Cannula 2.0 28 01/31/18 04:00 98.0 59 16 145/62 (89) 99 98.0 01/31/18 04:00 57 01/31/18 00:00 97.0 65 20 159/89 (112) 97 97.0 01/31/18 00:00 56 Intake and Output 01/30/18 01/31/18 19:00 07:00 Intake Total 960 ml 240 ml Output Total 800 ml 800 ml Balance 160 ml -560 ml Intake Oral 960 ml 240 ml Output Urine Total 800 ml 800 ml Laboratory Tests Test 01/31/18 07:30 Sodium Level 141 MMOL/L (136-145) Potassium Level 4.7 MMOL/L (3.5-5.1) Chloride Level 111 MMOL/L (98-107) H Carbon Dioxide Level 25 MMOL/L (21-32) Anion Gap 6 mmol/L (5-15) Blood Urea Nitrogen 32 mg/dL (7-18) H Creatinine 1.3 MG/DL (0.55-1.30) Estimat Glomerular Filtration Rate mL/min (>60) Glucose Level 88 MG/DL (74-106) Calcium Level 8.3 MG/DL (8.5-10.1) L Magnesium Level 1.8 MG/DL (1.8-2.4) Yamileth Hyde MD Jan 31, 2018 22:00
[2018-02-01] VITALS: BP 160/96
--- NOTE | 2018-02-01 03:45 | Consultation ---
DATE OF CONSULTATION: 01/31/2018 CARDIOLOGY CONSULTATION CONSULTING PHYSICIAN: Yamileth Hyde M.D. REFERRING PHYSICIAN: Shi Clancy M.D. IDENTIFYING DATA: This is an 87-year-old black male. HISTORY OF PRESENT ILLNESS: Taken from discussion with the patient, reviewing the chart and discussion with primary care, Dr. Perez. The patient was presented because of severe fatigue and he had severe pain in the right great toe and swelling and redness. When he came and was admitted, had evidence of acute kidney injury with initial creatinine was 3.8 and BUN was 110. So, the patient was hydrated gently and his condition improved. Now, he feels much better, although at baseline he is still very short of breath. PAST MEDICAL HISTORY: Significant for coronary artery disease, hypertension, CHF, dilated ischemic cardiomyopathy, COPD, and gout. His previous cardiac history significant for very low ejection fraction. He was at [facility] several times, his ejection fraction was 20%. He also had severe critical disease of LAD circumflex and RCA and he underwent coronary intervention in 12/2015 and 01/2016 with a stent placement for an LAD and circumflex. The last echo was done in 05/2017, and it revealed ejection fraction of 15%. At that time, the patient was offered defibrillator, but he declined. MEDICATIONS: Prior to admission include omeprazole, ropinirole, tiotropium, fluticasone and Lasix, carvedilol and lisinopril. HABITS: He used to smoke, but he quit 20 years ago. There is no alcohol or drug abuse. SOCIAL HISTORY: He lives in a prison facility. REVIEW OF SYSTEMS: Difficulty walking due to dyspnea and there was no chest pain at present time and no orthopnea and he feels a little more energetic than when he came in. PHYSICAL EXAMINATION: GENERAL: This is elderly man. VITAL SIGNS: Blood pressure 160/80, heart rate 58-60, oxygen saturation is 98% on room air and he is afebrile. HEENT: PERRLA. EOMI. NECK: Supple. Jugular venous pressure is approximately 5 cm. Carotid upstrokes preserved bilaterally. LUNGS: Few crackles. HEART: Regular with accented A2. ABDOMEN: Soft. There is no masses palpable. No tenderness. EXTREMITIES: His lower extremities, there is a trace edema bilaterally. NEUROLOGIC: There is no evidence of lateralized neurologic deficit. LABORATORY AND DIAGNOSTIC DATA: His ECG reveals sinus rhythm with a nonspecific ST and T changes. His chest x-ray was clear. His echocardiogram revealed ejection fraction of 55% and there was mild tricuspid regurgitation with mild aortic valve gradient. His other laboratory data from today significant for creatinine 1.3, BUN is 32, chloride is 4.7, and his white count 5.4, hemoglobin 12.6, and platelets are 139,000. Currently in terms of his medication, he is on aspirin and furosemide and heparin. IMPRESSION AND RECOMMENDATION: It is interesting that the patient ejection fraction improved so dramatically. I did look at his echocardiogram myself here at [place] and it is indeed about 50% ejection fraction. I have reviewed the echocardiogram at [facility]. So it could be that the patient had ischemic cardiomyopathy and then after he was revascularized gradually it recovered, although it is interesting that it took about 2 years for his ejection fraction to recover, but it is possible that hibernating myocardium sometimes takes long time to recover. I think that is a good explanation why his ejection fraction improved so much. I am going to review his echo at [facility]. He has elevated blood pressure, I am going to resume his lisinopril and he probably needs to be on statin. I do not know if he really needs furosemide at present time, but he is on a really small dose and based on his current echocardiogram, there is no indication for defibrillator. Thank you very much for your consultation. I am going to follow this patient with you. Yamileth Hyde M.D. DR: NANCI JOB#: [id number] CC: CATA
[2018-02-01 04:00] VITALS: BP 132/63
[2018-02-01 08:00] VITALS: BP 105/57
[2018-02-01] MEDS: Heparin 5000 units/ml inj SUBQ SCH ×2 (09:00→20:32)
[2018-02-01] MEDS: Lomotil 2.5mg tab ORAL SCH ×2 (09:08→20:09)
[2018-02-01] MEDS: Aspirin EC 325mg tab ORAL SCH (09:08)
[2018-02-01 12:00] VITALS: BP 152/91
[2018-02-01 16:00] VITALS: BP 121/57
--- NOTE | 2018-02-01 16:19 | Nephrology Progress Note ---
Assessment/Plan Plan Severe Volume depletion - slow hydration. Cautious with h/o severe CHF! (LVEF 20 %). Severe Syslotic CMP JASS on CKD - monitor labs BUN down to 41 creat nu to 1.3 which is below his baseline!! Has PVCS Check CXR - NAD. Optimized. Ambulate! Not been Ambulate yet!!!! 2D Echo Much improved!!!! Subjective Subjective Feels better. Better urine output. Positional dizziness. Objective Objective Last 24 Hour Vital Signs Date Time Temp Pulse Resp B/P (MAP) Pulse Ox O2 Delivery O2 Flow Rate FiO2 02/01/18 12:10 87 02/01/18 12:05 69 02/01/18 12:00 97.6 87 17 152/91 (111) 94 97.6 02/01/18 12:00 67 02/01/18 12:00 87 02/01/18 09:00 Nasal Cannula 2.0 Nasal Cannula 2.0 02/01/18 08:00 98.9 77 17 105/57 (73) 93 98.9 02/01/18 08:00 87 02/01/18 07:38 94 Nasal Cannula 2.0 28 02/01/18 07:38 76 16 Nasal Cannula 2.0 28 02/01/18 07:38 Nasal Cannula 2.0 28 02/01/18 04:00 72 02/01/18 04:00 98.7 76 18 132/63 (86) 93 98.7 02/01/18 00:00 97.5 61 18 160/96 (117) 95 97.5 02/01/18 00:00 81 01/31/18 21:00 Nasal Cannula 2.0 01/31/18 20:10 87 01/31/18 20:05 78 01/31/18 20:00 73 01/31/18 20:00 74 01/31/18 20:00 97.6 74 18 155/72 (99) 100 97.6 Intake and Output 01/31/18 02/01/18 19:00 07:00 Intake Total 730 ml 120 ml Output Total 750 ml 550 ml Balance -20 ml -430 ml Intake Oral 730 ml 120 ml Output Urine Total 750 ml 550 ml # Bowel Movements 2 3 Height (Feet): 5 Height (Inches): 7.00 Weight (Pounds): 154 Objective Hard of hearing. CV RR Lungs CTA Abd SNT. BS + E no CCE Shi Perez MD Feb 01, 2018 16:19
[2018-02-01 20:00] VITALS: BP 120/55
--- NOTE | 2018-02-01 21:31 | Cardiology Progress Note ---
Assessment/Plan Assessment/Plan I reviewed echo today at [facility] from May 2017, and his EF was very low. Now it improved. The patient underwent PCI in January of 2016. His myocardium recovered two years after intervention. This is very interesting and unusual Subjective Subjective complaining on weakness no dyspnea or chest pain Objective Last 24 Hour Vital Signs Date Time Temp Pulse Resp B/P (MAP) Pulse Ox O2 Delivery O2 Flow Rate FiO2 02/01/18 20:03 Nasal Cannula 2.0 28 02/01/18 20:03 96 Nasal Cannula 2.0 28 02/01/18 16:00 87 02/01/18 16:00 98.9 68 17 121/57 (78) 94 98.9 02/01/18 12:10 87 02/01/18 12:05 69 02/01/18 12:00 97.6 87 17 152/91 (111) 94 97.6 02/01/18 12:00 67 02/01/18 12:00 87 02/01/18 09:00 Nasal Cannula 2.0 Nasal Cannula 2.0 02/01/18 08:00 98.9 77 17 105/57 (73) 93 98.9 02/01/18 08:00 87 02/01/18 07:38 94 Nasal Cannula 2.0 28 02/01/18 07:38 76 16 Nasal Cannula 2.0 28 02/01/18 07:38 Nasal Cannula 2.0 28 02/01/18 04:00 72 02/01/18 04:00 98.7 76 18 132/63 (86) 93 98.7 02/01/18 00:00 97.5 61 18 160/96 (117) 95 97.5 02/01/18 00:00 81 General Appearance: thin EENT: PERRL/EOMI Neck: supple Rhythm: NSR Cardiovascular: normal rate Respiratory/Chest: normal breath sounds, rhonchi - bilaterally Abdomen: soft Extremities: trace edema Intake and Output 01/31/18 02/01/18 19:00 07:00 Intake Total 730 ml 120 ml Output Total 750 ml 550 ml Balance -20 ml -430 ml Intake Oral 730 ml 120 ml Output Urine Total 750 ml 550 ml # Bowel Movements 2 3 Yamileth Hyde MD Feb 01, 2018 21:31
[2018-02-02] VITALS: BP 105/69
[2018-02-02 04:00] VITALS: BP 112/69
[2018-02-02 08:00] VITALS: BP 155/83
[2018-02-02] MEDS: Heparin 5000 units/ml inj SUBQ SCH (08:07)
[2018-02-02] MEDS: Lomotil 2.5mg tab ORAL SCH (08:07)
[2018-02-02] MEDS: Aspirin EC 325mg tab ORAL SCH (08:07)
--- NOTE | 2018-02-02 08:18 | Nephrology Progress Note ---
Assessment/Plan Plan Severe Volume depletion - slow hydration. Cautious with h/o severe CHF! (LVEF 20 %). Severe Syslotic CMP JASS on CKD - monitor labs BUN down to 41 creat nu to 1.3 which is below his baseline!! Has PVCS Check CXR - NAD. Optimized. Ambulate! Not been Ambulate yet!!!! 2D Echo Much improved!!!! Subjective Subjective Feels better. Better urine output. Positional dizziness. Objective Objective Last 24 Hour Vital Signs Date Time Temp Pulse Resp B/P (MAP) Pulse Ox O2 Delivery O2 Flow Rate FiO2 02/02/18 04:00 98.3 60 20 112/69 (83) 99 98.3 02/02/18 04:00 66 02/02/18 00:00 76 02/02/18 00:00 97.5 75 18 105/69 (81) 98 97.5 02/01/18 21:00 Nasal Cannula 2.0 Room Air 02/01/18 20:10 104 02/01/18 20:05 112 02/01/18 20:03 Nasal Cannula 2.0 28 02/01/18 20:03 96 Nasal Cannula 2.0 28 02/01/18 20:00 89 02/01/18 20:00 98.4 64 18 120/55 (76) 96 98.4 02/01/18 20:00 60 02/01/18 16:00 87 02/01/18 16:00 98.9 68 17 121/57 (78) 94 98.9 02/01/18 12:10 87 02/01/18 12:05 69 02/01/18 12:00 97.6 87 17 152/91 (111) 94 97.6 02/01/18 12:00 67 02/01/18 12:00 87 02/01/18 09:00 Nasal Cannula 2.0 Nasal Cannula 2.0 Intake and Output 02/01/18 02/02/18 19:00 07:00 Intake Total 1200 ml 100 ml Output Total 875 ml Balance 1200 ml -775 ml Intake Oral 100 ml Other 1200 ml Output Urine Total 875 ml # Voids 1 Height (Feet): 5 Height (Inches): 7.00 Weight (Pounds): 155 Objective Hard of hearing. CV RR Lungs CTA Abd SNT. BS + E no CCE Shi Perez MD Feb 02, 2018 08:18
[2018-02-02] MEDS ORDERED: ASPIRIN EC325 MG ORAL (08:21)
[2018-02-02] MEDS ORDERED: FUROSEMIDE20 M1 ORAL (08:21)
[2018-02-02 12:00] VITALS: BP 147/64
[2018-02-02 16:00] VITALS: BP 140/70
--- NOTE | 2018-02-03 07:12 | Discharge Summary ---
Discharge Summary Discharge Summary _ DATE OF ADMISSION: 01/26/2018 DATE OF DISCHARGE: 02/02/2018 CONSULTANTS: Dr. Yamileth Hyde BRIEF HOSPITAL COURSE: Patient is an 87-year-old male, who lives in a [id number]. Patient was at his usual baseline, during the past 3 weeks, he noted decline in his health. He noticed increased fatigue and decreased appetite. He became bedridden. He has history of severe ischemic cardiomyopathy, with ejection fraction less than 20%, history of chronic kidney disease stage 4-5, hypertensive cardiovascular disease, COPD, and mild organic brain syndrome. On evaluation at ED, initial blood pressure was 84/52. He was complaining of pain on the first right metatarsal phalangeal joint. Blood work showed creatinine was elevated to 3.8 and BUN was 110. Uric acid was 10. He had an x- ray on the right foot, there were no fractures, malalignment, erosions or periostitis seen. Soft tissues were unremarkable. He was given IV hydration. He had pain and was given Toradol. He was given colchicine. He was then admitted for further evaluation. He was given gentle IV hydration with hypotonic solution. Cautious hydration was given secondary to history of severe cardiomyopathy with low ejection fraction. Renal function was monitored. He had an echocardiogram done that showed EF of 55%. Dr. Hooks was consulted. Review of previous admission at [facility] was done. He had previous cardiac history significant for very low ejection fraction of 20% and had severe critical disease of LAD circumflex and RCA when he underwent coronary intervention in December 2015 and January 2016 with a stent placement for LAD and circumflex. Last echocardiogram done was on May 2017 and it revealed ejection fraction of 15% and at that time he was offered defibrillator but he declined. Upon review of current echocardiogram, there was improvement in ejection fraction to about 50%. There is no current indication for a defibrillator. Renal functions improved down to 1.3 which is below his baseline. Patient was medically optimized and was encouraged ambulation. He was eventually cleared for discharge home with home health. FINAL DIAGNOSES: Severe volume depletion Severe systolic CMP Chronic systolic CHF Acute kidney injury on chronic kidney disease DISPOSITION: Patient was discharged home with home health. DISCHARGE MEDICATIONS: Refer to Discharge Medication List. DISCHARGE INSTRUCTIONS: Follow up within a week. I have been assigned to dictate discharge summary on this account, and I was not involved in the patient's management. Edelmira Ventura NP Feb 03, 2018 07:12
== END 2018-02-02 16:35 | disposition home health service (06) | DRG 683 ==
LOC: EDBD 11:29 → EMR 11:58 → 4W 14:09 → EDBEDREQ 14:36 → 2E 16:46
DX: N17.9 Acute kidney failure, unspecified (principal); I50.22 Chronic systolic (congestive) heart failure; I13.2 Hypertensive heart and chronic kidney disease with heart failure and with stage 5 chronic kidney disease, or end stage renal disease; E86.9 Volume depletion, unspecified; N18.5 Chronic kidney disease, stage 5; Z87.891 Personal history of nicotine dependence; I25.5 Ischemic cardiomyopathy; J44.9 Chronic obstructive pulmonary disease, unspecified; F09 Unspecified mental disorder due to known physiological condition; M25.572 Pain in left ankle and joints of left foot; M10.9 Gout, unspecified
CPT/HCPCS: 36415; 71045; 80048; 80053; 81003; 82550; 83605; 83735; 83880; 84443; 84484; 84550; 85025; 85610; 85651; 85730; 87081; 93005; 93306; 94664; 94760; 99285

== ENCOUNTER 2018-02-05 07:34 | Inpatient (IN) | payer MEDICARE, MEDICAID ==
[~2018-02-05] VITALS: Ht 167.6 cm; Wt 70.8 kg
[~2018-02-05 07:34] MED LIST changes: +ASPIRIN EC325 MG ORAL; +FUROSEMIDE20 M1 ORAL
--- NOTE | 2018-02-05 07:46 | Emergency Room Report ---
History of Present Illness General Chief Complaint: General Complaint Source: Patient, Medical Record Present Illness HPI Patient is an 87-year-old male who presented after increased lower extremity swelling bilaterally. Patient had gradual onset of symptoms. Patient reports having a recent hospitalization. Patient was previously the on Lasix for congestive heart failure. He had been have elevated BUN/creatinine. Patient prior history of gout. He had been have recently had noted to have some increased renal issues. Patient had been having any fever. He reported having some increased difficulty breathing. Patient prior history of smoking but does not currently smoke. He denies productive cough. Patient had gradual onset of leg swelling. Patient reports not being able to put on shoes Allergies: Coded Allergies: NO KNOWN DRUG ALLERGIES (Verified Allergy, Unknown, 06/20/15) Patient History Past Medical History: old chart reviewed Reviewed Nursing Documentation: PMH: Agreed; PSxH: Agreed Nursing Documentation-PMH Hx Cardiac Problems: Yes - chf Hx Hypertension: Yes Hx Asthma: Yes Hx COPD: Yes Hx Cancer: No Hx Gastrointestinal Problems: Yes Hx Neurological Problems: Yes Hx Cerebrovascular Accident: Yes Review of Systems All Other Systems: negative except mentioned in HPI Physical Exam Vital Signs Date Time Temp Pulse Resp B/P (MAP) Pulse Ox O2 Delivery O2 Flow Rate FiO2 02/05/18 07:34 97.8 58 18 107/58 96 Room Air 97.9 Sp02 EP Interpretation: reviewed, normal General Appearance: normal inspection, alert, thin, Chronically Ill Head: atraumatic ENT: normal ENT inspection, hearing grossly normal, normal voice Neck: normal inspection, full range of motion, supple, no bony tend Respiratory: normal inspection, no respiratory distress, no retraction, rales Cardiovascular #1: regular rate, rhythm, edema - 4 + edema Gastrointestinal: normal inspection, normal bowel sounds, non tender, soft, no guarding, no hernia Genitourinary: no CVA tenderness Musculoskeletal: normal inspection, back normal, normal range of motion Neurologic: normal inspection, alert, oriented x3, responsive, seismic engineer III-XII nml as tested, speech normal Psychiatric: normal inspection, judgement/insight normal, mood/affect normal Skin: normal inspection, normal color, no rash Medical Decision Making Diagnostic Impression: Primary Impression: CHF (congestive heart failure) Additional Impressions: Renal insufficiency Chronic lung disease ER Course Patient presented for shortness of breath and leg swelling.. Differential included but was not limited to anemia, pneumonia, pneumothorax, myocardial infarction, pericardial effusion, congestive heart failure, acidosis. Because of complexity of patient's case laboratory testing and imaging studies were ordered.Chest x-ray one view read by radiology showed ectatic aorta as well as minimally increased reticular markings in bilateral lung bases versus subtle infiltrate. I EKG interpreted by me showed sinus bradycardia with a rate of 57 with the motion artifact and nonspecific ST changes. The laboratory testing was notable for the improved BUN/creatinine compared to prior visit. The patient's BNP was noted be somewhat elevated. Patient was given IV Lasix as well as breathing treatment.Dr. Shi Perez I was contacted for inpatient management due to previous admission Labs Test 02/05/18 08:10 White Blood Count 5.1 K/UL (4.8-10.8) Red Blood Count 3.65 M/UL (4.70-6.10) Hemoglobin 11.3 G/DL (14.2-18.0) Hematocrit 35.2 % (42.0-52.0) Mean Corpuscular Volume 97 FL (80-99) Mean Corpuscular Hemoglobin 31.0 PG (27.0-31.0) Mean Corpuscular Hemoglobin Concent 32.1 G/DL (32.0-36.0) Red Cell Distribution Width 14.3 % (11.6-14.8) Platelet Count 158 K/UL (150-450) Mean Platelet Volume 7.0 FL (6.5-10.1) Neutrophils (%) (Auto) 52.7 % (45.0-75.0) Lymphocytes (%) (Auto) 28.3 % (20.0-45.0) Monocytes (%) (Auto) 11.8 % (1.0-10.0) Eosinophils (%) (Auto) 4.8 % (0.0-3.0) Basophils (%) (Auto) 2.4 % (0.0-2.0) Urine Color Pale yellow Urine Appearance Clear Urine pH 5 (4.5-8.0) Urine Specific [place] 1.010 (1.005-1.035) Urine Protein Negative (NEGATIVE) Urine Glucose (UA) Negative (NEGATIVE) Urine Ketones Negative (NEGATIVE) Urine Occult Blood Negative (NEGATIVE) Urine Nitrite Negative (NEGATIVE) Urine Bilirubin Negative (NEGATIVE) Urine Urobilinogen Normal MG/DL (0.0-1.0) Urine Leukocyte Esterase Negative (NEGATIVE) Sodium Level 138 MMOL/L (136-145) Potassium Level 4.7 MMOL/L (3.5-5.1) Chloride Level 105 MMOL/L (98-107) Carbon Dioxide Level 22 MMOL/L (21-32) Anion Gap 11 mmol/L (5-15) Blood Urea Nitrogen 43 mg/dL (7-18) Creatinine 1.7 MG/DL (0.55-1.30) Estimat Glomerular Filtration Rate mL/min (>60) Glucose Level 79 MG/DL (74-106) Calcium Level 8.8 MG/DL (8.5-10.1) Total Bilirubin 0.4 MG/DL (0.2-1.0) Aspartate Amino Transf (AST/SGOT) 22 U/L (15-37) Alanine Aminotransferase (ALT/SGPT) 16 U/L (12-78) Alkaline Phosphatase 48 U/L (46-116) Total Creatine Kinase 132 U/L (26-308) Creatine Kinase MB 1.9 NG/ML (0.0-3.6) Creatine Kinase MB Relative Index 1.4 Troponin I 0.015 ng/mL (0.000-0.056) Pro-B-Type Natriuretic Peptide 2933 pg/mL (0-125) Total Protein 7.6 G/DL (6.4-8.2) Albumin 3.6 G/DL (3.4-5.0) Globulin 4.0 g/dL Albumin/Globulin Ratio 0.9 (1.0-2.7) EKG Diagnostic Results Rate: normal Rhythm: NSR ST Segments: no acute changes Rhythm Strip Diag. Results EP Interpretation: yes Rhythm: NSR, no PVC's Last Vital Signs Date Time Temp Pulse Resp B/P (MAP) Pulse Ox O2 Delivery O2 Flow Rate FiO2 02/05/18 07:34 97.8 58 18 107/58 96 Room Air 97.9 Status: unchanged Disposition: ADMITTED INPATIENT Condition: Serious Albino Reynolds MD Feb 05, 2018 07:46
[2018-02-05] MEDS ORDERED: TAMSULOSIN HCL0.4 MG ORAL (07:51)
[2018-02-05] MEDS ORDERED: ROPINIROLE HC0.25 MG PO (07:51)
[2018-02-05] MEDS ORDERED: CARVEDILOL25 MG ORAL (07:51)
[2018-02-05] MEDS ORDERED: ENTRESTO 97 MG1 EACH PO (07:51)
[2018-02-05] MEDS ORDERED: MULTIVITAMINS1 EA14 PO (07:51)
[2018-02-05] MEDS ORDERED: FUROSEMIDE40 MG ORAL (07:51)
[2018-02-05] MEDS ORDERED: Ascorbic Acid 500mg tab ORAL ONE (08:00)
[2018-02-05 08:15] VITALS: BP 130/62
[2018-02-05 08:25] LABS: APPEARANCE,URINE CLEAR; BILIRUBIN, URINE NEGATIVE (NEGATIVE); COLOR,URINE PALE YELLOW; GLUCOSE, URINE (UA) NEGATIVE (NEGATIVE); KETONES,URINE NEGATIVE (NEGATIVE); LEUKOCYTE ESTERASE ,URINE NEGATIVE (NEGATIVE); NITRITE,URINE NEGATIVE (NEGATIVE); PH,URINE 5 (4.5-8.0); PROTEIN,URINE NEGATIVE (NEGATIVE); UROBILINOGEN,URINE NORMAL MG/DL (0.0-1.0)
[2018-02-05 08:29] LABS: BASOPHILS % (AUTO) 2.4 % (0.0-2.0); EOSINOPHILS % (AUTO) 4.8 % (0.0-3.0); HEMATOCRIT 35.2 % (42.0-52.0); HEMOGLOBIN 11.3 G/DL (14.2-18.0); LYMPHOCYTES % (AUTO) 28.3 % (20.0-45.0); MEAN CORPUSCULAR VOLUME 97 FL (80-99); MONOCYTES % (AUTO) 11.8 % (1.0-10.0); NEUTROPHILS % (AUTO) 52.7 % (45.0-75.0); PLATELET COUNT 158 K/UL (150-450); RED BLOOD COUNT 3.65 M/UL (4.70-6.10); RED CELL DISTRIBUTION WIDTH 14.3 % (11.6-14.8); WHITE BLOOD COUNT 5.1 K/UL (4.8-10.8)
[2018-02-05 08:45] LABS: ANION GAP 11 mmol/L (5-15); BLOOD UREA NITROGEN 43 mg/dL (7-18); CALCIUM 8.8 MG/DL (8.5-10.1); CARBON DIOXIDE 22 MMOL/L (21-32); CHLORIDE 105 MMOL/L (98-107); CREATININE 1.7 MG/DL (0.55-1.30); POTASSIUM 4.7 MMOL/L (3.5-5.1); SODIUM 138 MMOL/L (136-145)
[2018-02-05 09:00] LABS: ALANINE AMINOTRANSFERASE 16 U/L (12-78); ALBUMIN 3.6 G/DL (3.4-5.0); ALBUMIN/GLOBULIN RATIO 0.9 (1.0-2.7); ALKALINE PHOSPHATASE 48 U/L (46-116); ASPARTATE AMINO TRANSFERASE 22 U/L (15-37); BILIRUBIN,TOTAL 0.4 MG/DL (0.2-1.0); CKMB 1.9 NG/ML (0.0-3.6); CREATINE KINASE 132 U/L (26-308)
[2018-02-05 09:37] VITALS: BP 131/56
--- NOTE | 2018-02-05 10:04 | Diagnostic Imaging Report ---
EXAM: XR Chest, 1 View CLINICAL HISTORY: Shortness of breath TECHNIQUE: Frontal view of the chest. COMPARISON: Chest x-ray dated 01/31/18 FINDINGS: Lungs: Minimal increased reticular interstitial markings in bilateral lung bases, likely related to subsegmental atelectasis versus a subtle infiltrate. The lungs otherwise appear clear. Pleural space: Unremarkable. No pneumothorax. Heart: Unremarkable. No cardiomegaly. Mediastinum: Unremarkable. Bones/joints: Unremarkable. Vasculature: Atherosclerotic calcifications are noted within the aortic arch. Aorta is mildly tortuous. Tubes, lines and devices: EKG leads overlie the thorax. IMPRESSION: Minimal increased reticular interstitial markings in bilateral lung bases, likely related to subsegmental atelectasis versus a subtle infiltrate.
[2018-02-05 11:12] VITALS: BP 147/63
[2018-02-05] MEDS ORDERED: Albuterol/Ipratropium 3ml neb HHN PRN (13:00)
[2018-02-05 13:45] VITALS: BP 145/57
[2018-02-05] MEDS ORDERED: Carvedilol 12.5mg tab ORAL SCH (14:15)
[2018-02-05 16:55] VITALS: BP 112/60
[2018-02-05] MEDS: Furosemide 80mg tab ORAL SCH (17:33)
[2018-02-05 20:00] VITALS: BP 100/50
--- NOTE | 2018-02-05 20:00 | History and Physical Report ---
DATE OF ADMISSION: 02/05/2018 CHIEF COMPLAINT: Shortness of breath, itching, and lower extremity edema. HISTORY OF PRESENT ILLNESS: This is an 87-year-old, male, who was discharged from this hospital last week with CHF and acute renal failure. The patient was discharged to [facility]. He presented to this hospital's emergency department with above-mentioned complaints. His medications were adjusted. The patient had decline of his GFR during the last admission where his BUN was more than 100 and creatinine more than 3. After holding his Lasix, creatinine went down to below 1.3 and BUN around 40. As a surprise, his last 2D echo showed left ventricular ejection fraction of 51% whereas the previous 2D echo that was done at [facility] about 6 months ago showed left ventricular ejection fraction of about 15%. I could note reconcile differences. Dr. Yamileth Hyde could note reconcile the differences as well. Apparently, the patient's left ventricular dysfunction is closer to 15% more than 50%. The patient was a candidate for left ventricular ICD several times and declined. PAST MEDICAL HISTORY: 1. Severe left ventricular dysfunction due to ischemic cardiomyopathy. 2. Cardiorenal failure. 3. Benign prostatic hypertrophy. 4. Rest restless legs syndrome. CURRENT MEDICATIONS: Multivitamins, Coreg 25 mg b.i.d., Lasix 40 mg b.i.d., tamsulosin 0.4 mg daily, Entresto 97/103 mg b.i.d., ropinirole 0.25 mg one p.o. at bedtime. ALLERGIES: No known drug allergies. FAMILY HISTORY: Unremarkable. SOCIAL HISTORY: He lives in a rust. HABITS: He is nonsmoker and nondrinker. No history of illicit drug abuse. REVIEW OF SYSTEMS: HEENT: Hearing extremely reduced. The patient has conductive hearing loss. Eyesight normal. ENDOCRINE: No history of diabetes, thyroid or adrenal problems. RESPIRATORY: Significant orthopnea, paroxysmal nocturnal dyspnea, and dyspnea on effort. The patient is [place] Heart Classification III. CARDIOVASCULAR: Please refer to history of present illness and past medical history. He denies chest pain. GASTROINTESTINAL: No history of hematochezia, melena, hematemesis, diarrhea, or constipation. NEUROLOGIC: No history of stroke, syncope, Parkinson disease. He has restless leg syndrome. PHYSICAL EXAMINATION: GENERAL: This is an elderly male, who is currently in no acute distress. VITAL SIGNS: Blood pressure 147/63, pulse 60 and regular, respirations 20, O2 saturation 100% on 2 liters/minutes nasal cannula. HEENT: Normocephalic and atraumatic. Pupils are equal, round, and reactive to light and accommodation consensually. NECK: Supple. Trachea midline. There was no lymphadenopathy or thyromegaly. LUNGS: Few bilateral wheezes. HEART: Regular rate and rhythm without rubs, murmurs, or gallops. ABDOMEN: Soft and nontender. Bowel sounds were active. EXTREMITIES: He has 3+ bilateral ankle edema. NEUROLOGIC: He is alert and oriented x4. Cranial nerves II through XII intact. LABORATORY AND ANCILLARY DATA: Chest x-ray shows minimal increased reticular interstitial markings in bilateral lung bases likely related to subsegmental atelectasis versus subtle infiltrates. CBC within normal limits. Serum chemistry, electrolytes within normal limits. BUN 43, creatinine 1.7. ProBNP 2933. Urinalysis within normal limits. ABGs, pH 7.37, pCO2 32, pO2 116 this is apparently on 2 liters/minutes. Bicarb 18.4. ASSESSMENT: 1. Worsening congestive heart failure. 2. Fluid retention secondary to the above. 3. Severe left ventricular dysfunction due to ischemic cardiomyopathy. 4. Cardiorenal failure. 5. Benign prostatic hypertrophy. 6. Rest restless leg syndrome. PLAN: 1. Admit to telemetry. 2. Repeat 2D echo. 3. Cardiology consult. 4. Increase Lasix. Shi Perez M.D. DR: Vin JOB#: [id number] CC: CATA
[2018-02-05] MEDS: Carvedilol 12.5mg tab ORAL SCH (21:00)
[2018-02-05] MEDS: Docusate 100mg cap ORAL SCH (21:00)
[2018-02-05] MEDS: Tamsulosin 0.4mg cap ORAL SCH (21:15)
[2018-02-05] MEDS: Heparin 5000 units/ml inj SUBQ SCH (21:24)
[2018-02-06] VITALS: BP 139/63
[2018-02-06 04:00] VITALS: BP 131/54
[2018-02-06 07:31] LABS: BASOPHILS % (AUTO) 3.8 % (0.0-2.0); EOSINOPHILS % (AUTO) 6.7 % (0.0-3.0); HEMATOCRIT 40.5 % (42.0-52.0); HEMOGLOBIN 13.3 G/DL (14.2-18.0); LYMPHOCYTES % (AUTO) 39.3 % (20.0-45.0); MEAN CORPUSCULAR VOLUME 96 FL (80-99); MONOCYTES % (AUTO) 10.4 % (1.0-10.0); NEUTROPHILS % (AUTO) 39.8 % (45.0-75.0); PLATELET COUNT 130 K/UL (150-450); WHITE BLOOD COUNT 4.2 K/UL (4.8-10.8)
[2018-02-06 07:55] LABS: ANION GAP 13 mmol/L (5-15); BLOOD UREA NITROGEN 50 mg/dL (7-18); CALCIUM 8.9 MG/DL (8.5-10.1); CARBON DIOXIDE 23 MMOL/L (21-32); CHLORIDE 104 MMOL/L (98-107); CREATININE 1.8 MG/DL (0.55-1.30); POTASSIUM 4.5 MMOL/L (3.5-5.1); SODIUM 140 MMOL/L (136-145)
[2018-02-06 08:00] VITALS: BP 105/51
[2018-02-06] MEDS: Furosemide 80mg tab ORAL SCH ×2 (08:25→17:17)
[2018-02-06] MEDS: Aspirin Baby 81mg ORAL SCH (08:25)
[2018-02-06] MEDS: Docusate 100mg cap ORAL SCH ×2 (08:25→20:49)
[2018-02-06] MEDS: Carvedilol 12.5mg tab ORAL SCH ×2 (08:26→20:50)
[2018-02-06] MEDS: Heparin 5000 units/ml inj SUBQ SCH ×2 (08:27→20:49)
[2018-02-06 12:00] VITALS: BP 122/54
--- NOTE | 2018-02-06 13:38 | General Progress Note ---
Assessment/Plan Status Narrative CHF diurese, check 2D Echo CKD III SEE lab results. Itching - r/o scabies vs. bed bugs. Subjective Allergies: Coded Allergies: NO KNOWN DRUG ALLERGIES (Verified Allergy, Unknown, 06/20/15) Subjective c/o itching less sob Objective Last 24 Hour Vital Signs Date Time Temp Pulse Resp B/P (MAP) Pulse Ox O2 Delivery O2 Flow Rate FiO2 02/06/18 12:00 97.3 60 20 122/54 (76) 100 97.3 02/06/18 09:00 Nasal Cannula 3.0 02/06/18 08:26 61 105/51 02/06/18 08:00 97.0 61 20 105/51 (69) 100 97.0 02/06/18 08:00 58 02/06/18 04:00 55 02/06/18 04:00 97.2 52 20 131/54 (79) 100 97.2 02/06/18 00:00 96.6 57 20 139/63 (88) 100 96.6 02/06/18 00:00 56 02/05/18 21:00 58 100/50 02/05/18 21:00 Nasal Cannula 3.0 02/05/18 20:00 52 02/05/18 20:00 97.7 58 20 100/50 (67) 99 97.7 02/05/18 16:55 97.5 60 18 112/60 (77) 100 97.5 02/05/18 16:05 97.9 02/05/18 16:00 63 02/05/18 15:06 97.9 02/05/18 15:03 68 151/71 02/05/18 14:22 Nasal Cannula 2.0 02/05/18 13:50 97.9 58 18 145/57 100 Nasal Cannula 2.0 97.9 02/05/18 13:45 97.9 58 18 145/57 100 Nasal Cannula 2.0 97.9 Intake and Output 02/05/18 02/06/18 19:00 07:00 Intake Total 120 ml Output Total 300 ml 900 ml Balance -180 ml -900 ml Intake Oral 120 ml Output Urine Total 300 ml 900 ml # Voids 1 Laboratory Tests 02/06/18 05:50: White Blood Count 4.2L, Red Blood Count 4.20L, Hemoglobin 13.3L, Hematocrit 40.5L, Mean Corpuscular Volume 96, Mean Corpuscular Hemoglobin 31.5H, Mean Corpuscular Hemoglobin Concent 32.7, Red Cell Distribution Width 14.0, Platelet Count 130L, Mean Platelet Volume 6.8, Neutrophils (%) (Auto) 39.8L, Lymphocytes (%) (Auto) 39.3, Monocytes (%) (Auto) 10.4H, Eosinophils (%) (Auto) 6.7H, Basophils (%) (Auto) 3.8H, Sodium Level 140, Potassium Level 4.5, Chloride Level 104, Carbon Dioxide Level 23, Anion Gap 13, Blood Urea Nitrogen 50H, Creatinine 1.8H, Estimat Glomerular Filtration Rate , Glucose Level 74, Calcium Level 8.9, Magnesium Level 1.9 Height (Feet): 5 Height (Inches): 6.00 Weight (Pounds): 160 Objective CV RR Lungs few crackles Abd SNT . BS+ E + 3 EDEMA Shi Perez MD Feb 06, 2018 13:38
[2018-02-06 16:00] VITALS: BP 100/62
[2018-02-06 20:00] VITALS: BP 127/55
--- NOTE | 2018-02-06 20:39 | Cardiology Report ---
APPROVED REPORT EXAM: Two-dimensional and M-mode echocardiogram with Doppler and color Doppler. INDICATION Congestive Heart Failure M-Mode DIMENSIONS Left Atrium (MM)3.6 (1.6-4.0cm) Aortic Root3.1 (2.0-3.7cm) Aortic Cusp Exc.1.6 (1.5-2.0cm) Technically difficult study due to poor acoustical windows. M-mode measurements not obtainable due to cardiac structure. Normal left ventricular chamber size, systolic function and wall motion. Left ventricular ejection fraction estimated to be 50%. Mild left ventricular hypertrophy. No evidence of pericardial or pleural effusion. Right cardiac chamber sizes are within normal limits. Mild left atrial enlargement by 2D. Focal aortic valve sclerosis with adequate cusp excursion. Thickened mitral valve leaflets with normal excursion. Mild mitral annulus and aortic root calcification. Pulmonic valve not well visualized. Normal tricuspid valve structure. IVC is normal in size and collapsible with respiration. Mobile Intra-atria septal motion. A color flow and spectral Doppler study was performed and revealed: Mild aortic regurgitation. Trace mitral regurgitation. Mitral diastolic velocities suggest reduced left ventricular relaxation c/w diastolic dysfunction grade 1. Moderate tricuspid regurgitation. Tricuspid systolic velocities suggests peak right ventricular systolic pressure of 46 mmHg Consistent with moderate pulmonary hypertension.
[2018-02-06] MEDS: Tamsulosin 0.4mg cap ORAL SCH (20:49)
[2018-02-07] VITALS: BP 130/52
--- NOTE | 2018-02-07 00:45 | Consultation ---
DATE OF CONSULTATION: 02/06/2018 CARDIOLOGY CONSULTATION CONSULTING PHYSICIAN: Yamileth Hyde M.D. REFERRING PHYSICIAN: Shi Perez M.D. PATIENT IDENTIFICATION: This is an 87-year-old gentleman. HISTORY OF PRESENT ILLNESS: The patient was recently discharged from the hospital. He came back mostly because of severe itching. He stated he could not lie down in the bed because as soon as he lie down he has terrible itching and burning of whole body and he had to sit up. When he was sitting up it was a little better and thus he was spending most of his night sitting up. He denies orthopnea though. He denies any cough or wheezing. He denies any chest pain. The patient recently was admitted here with acute kidney injury and he was gently hydrated and the kidney function improved. The patient has history of coronary artery disease and decreased ejection fraction. I reviewed his records from [facility]. He underwent coronary angiogram and angioplasty of proximal LAD and circumflex in January and December 2015. His ejection fraction prior to that was very low 30% and he was in florid heart failure. He continued to be in florid heart failure and his next echo in [facility] was repeated in April 2017 and still showed ejection fraction of 35%. I reviewed that echo as well myself. The patient then was admitted in the spring of this year. He was offered ICD, he declined because of his age he stated however here when he came back, his echocardiogram showed ejection fraction of 50% and that is actual real function. I reviewed that echo again myself and it dramatically improved in comparison to the previous echo, which was done in April 2017 and that was interpreted as improved hibernating myocardium after he underwent revascularization. PAST MEDICAL HISTORY: Significant for gout, hypertension, severe COPD, renal disease, kidney disease, and hypertension. ALLERGIES: Not reported. MEDICATIONS: The patient upon admission was on following medications, carvedilol, fluticasone, furosemide, Entresto, Flomax, and Spiriva. HABITS: He used to be a heavy smoker, he quit many years ago. Alcohol, never used or abused and other illicit drugs never abused. SOCIAL HISTORY: He lives at a snf facility. REVIEW OF SYSTEMS: Significant for lower extremity edema, burning and itching when he lies down at night. He does not have any fever. No orthopnea. No chest pressure described. The rest of the review of system are negative. PHYSICAL EXAMINATION: GENERAL: This is an elderly man, alert, and oriented. VITAL SIGNS: Blood pressure 112/70, heart rate is 60, oxygen saturation is 96% he is on 2 liters of nasal cannula. He is afebrile. HEENT: PERRLA. EOMI. NECK: Supple. Jugular venous pressure is not elevated yet. LUNGS: Clear to auscultation. HEART: Regular with slightly accented A2. PMI is not palpable. BREASTS: No masses. ABDOMEN: Soft, distended slightly. Bowel sounds are present. Liver is not enlarged. EXTREMITIES: Lower extremities, 1+ edema. LABORATORY AND DIAGNOSTIC DATA: His ECG revealed sinus bradycardia and some nonspecific ST-T abnormality. His laboratories are reviewed and his labs from this admission include WBC 5.1, hemoglobin 11.3, and platelets 158. Creatinine 1.8 today, yesterday 1.7. BUN 43 and uric acid 8.9. Troponin 0.015. Chest x-ray, possible atelectasis. IMPRESSION AND RECOMMENDATION: The patient has congestive heart failure, but is mild due to diastolic dysfunction. I would urge not to over diurese him for the sake of his kidneys again. His ejection fraction recovery is remarkable, unusual, and it is real. He really recovered his hibernating myocardium. I would suggest not to get him over diuresed and not to get his blood pressure too low. In terms of the itching pruritus, I will leave that management to Dr. Peres. Thank you very much for your consultation. Yamileth Hyde M.D. DR: RUBY JOB#: [id number] CC:
[2018-02-07 04:00] VITALS: BP 123/46
[2018-02-07 05:52] LABS: ANION GAP 9 mmol/L (5-15); BLOOD UREA NITROGEN 51 mg/dL (7-18); CALCIUM 8.7 MG/DL (8.5-10.1); CARBON DIOXIDE 27 MMOL/L (21-32); CHLORIDE 105 MMOL/L (98-107); CREATININE 1.8 MG/DL (0.55-1.30); POTASSIUM 4.3 MMOL/L (3.5-5.1); SODIUM 140 MMOL/L (136-145)
[2018-02-07 08:00] VITALS: BP 96/56
[2018-02-07] MEDS: Carvedilol 12.5mg tab ORAL SCH ×2 (09:00→21:06)
[2018-02-07] MEDS: Heparin 5000 units/ml inj SUBQ SCH ×2 (09:00→21:02)
[2018-02-07] MEDS: Docusate 100mg cap ORAL SCH ×2 (09:00→21:01)
[2018-02-07] MEDS: Aspirin Baby 81mg ORAL SCH (09:10)
[2018-02-07] MEDS: Furosemide 80mg tab ORAL SCH (09:10)
[2018-02-07 12:00] VITALS: BP 112/52
--- NOTE | 2018-02-07 15:26 | General Progress Note ---
Assessment/Plan Assessment/Plan Repeat 2D Echo much improved cardiac contractility. LVEF 50%. Continue to diurese. Subjective Allergies: Coded Allergies: NO KNOWN DRUG ALLERGIES (Verified Allergy, Unknown, 06/20/15) Subjective Les itching less sob Objective Last 24 Hour Vital Signs Date Time Temp Pulse Resp B/P (MAP) Pulse Ox O2 Delivery O2 Flow Rate FiO2 02/07/18 12:00 97.7 59 18 112/52 (72) 98 97.7 02/07/18 09:00 Nasal Cannula 3.0 02/07/18 09:00 75 96/56 02/07/18 08:00 75 02/07/18 08:00 97.4 75 18 96/56 (69) 96 97.4 02/07/18 04:00 48 02/07/18 04:00 97.8 55 17 123/46 (71) 100 97.8 02/07/18 00:00 97.5 74 18 130/52 (78) 95 97.5 02/07/18 00:00 52 02/06/18 21:00 Nasal Cannula 3.0 02/06/18 20:50 65 127/50 02/06/18 20:00 65 02/06/18 20:00 97.4 70 19 127/55 (79) 96 97.4 02/06/18 16:00 97.3 66 20 100/62 (75) 100 97.3 Intake and Output 02/06/18 02/07/18 19:00 07:00 Intake Total 600 ml 480 ml Output Total 1100 ml Balance -500 ml 480 ml Intake Oral 600 ml 480 ml Output Urine Total 1100 ml # Voids 4 Laboratory Tests 02/07/18 05:32: Sodium Level 140, Potassium Level 4.3, Chloride Level 105, Carbon Dioxide Level 27, Anion Gap 9, Blood Urea Nitrogen 51H, Creatinine 1.8H, Estimat Glomerular Filtration Rate , Glucose Level 83, Calcium Level 8.7 Height (Feet): 5 Height (Inches): 6.00 Weight (Pounds): 160 Objective CV RR Lungs few crackles Abd SNT . BS+ E + 3 EDEMA Shi Perez MD Feb 07, 2018 15:26
[2018-02-07 16:00] VITALS: BP 112/53
--- NOTE | 2018-02-07 17:32 | Cardiology Progress Note ---
Assessment/Plan Assessment/Plan was hypotensive this morning decreased furosemide dose and holding paramaters on carvedilol Subjective Subjective The patient is resting, he was very dizzy in the morning now he feels better Objective Last 24 Hour Vital Signs Date Time Temp Pulse Resp B/P (MAP) Pulse Ox O2 Delivery O2 Flow Rate FiO2 02/07/18 16:00 97.5 56 20 112/53 (72) 97 97.5 02/07/18 16:00 59 02/07/18 12:00 61 02/07/18 12:00 97.7 59 18 112/52 (72) 98 97.7 02/07/18 09:00 Nasal Cannula 3.0 02/07/18 09:00 75 96/56 02/07/18 08:00 75 02/07/18 08:00 97.4 75 18 96/56 (69) 96 97.4 02/07/18 04:00 48 02/07/18 04:00 97.8 55 17 123/46 (71) 100 97.8 02/07/18 00:00 97.5 74 18 130/52 (78) 95 97.5 02/07/18 00:00 52 02/06/18 21:00 Nasal Cannula 3.0 02/06/18 20:50 65 127/50 02/06/18 20:00 65 02/06/18 20:00 97.4 70 19 127/55 (79) 96 97.4 General Appearance: no apparent distress EENT: PERRL/EOMI Neck: no JVD Rhythm: NSR Cardiovascular: normal rate, systolic murmur Respiratory/Chest: normal breath sounds Abdomen: no mass Extremities: trace edema Intake and Output 02/06/18 02/07/18 19:00 07:00 Intake Total 600 ml 480 ml Output Total 1100 ml Balance -500 ml 480 ml Intake Oral 600 ml 480 ml Output Urine Total 1100 ml # Voids 4 Laboratory Tests Test 02/07/18 05:32 Sodium Level 140 MMOL/L (136-145) Potassium Level 4.3 MMOL/L (3.5-5.1) Chloride Level 105 MMOL/L (98-107) Carbon Dioxide Level 27 MMOL/L (21-32) Anion Gap 9 mmol/L (5-15) Blood Urea Nitrogen 51 mg/dL (7-18) H Creatinine 1.8 MG/DL (0.55-1.30) H Estimat Glomerular Filtration Rate mL/min (>60) Glucose Level 83 MG/DL (74-106) Calcium Level 8.7 MG/DL (8.5-10.1) Microbiology Date/Time Source Procedure Growth Status 02/05/18 09:30 Nasal Nares MRSA Culture - Final NO METHICILLIN RESISTANT STAPH AUREUS... Complete 02/05/18 09:30 Rectum VRE Culture - Final NO VANCOMYCIN RESISTANT ENTEROCOCCUS ... Complete 02/05/18 09:30 Rectum - Final NO CARBAPENEM-RESISTANT ENTEROBACTERI... Complete Yamileth Hyde MD Feb 07, 2018 17:32
[2018-02-07 20:00] VITALS: BP 129/57
[2018-02-07] MEDS: Tamsulosin 0.4mg cap ORAL SCH (21:01)
[2018-02-08] VITALS: BP 124/57
[2018-02-08 04:00] VITALS: BP 105/54
[2018-02-08 05:19] LABS: ANION GAP 7 mmol/L (5-15); BLOOD UREA NITROGEN 51 mg/dL (7-18); CALCIUM 8.2 MG/DL (8.5-10.1); CARBON DIOXIDE 28 MMOL/L (21-32); CHLORIDE 103 MMOL/L (98-107); CREATININE 1.8 MG/DL (0.55-1.30); POTASSIUM 4.7 MMOL/L (3.5-5.1); SODIUM 138 MMOL/L (136-145)
[2018-02-08 08:00] VITALS: BP 103/47
[2018-02-08] MEDS: Carvedilol 12.5mg tab ORAL SCH ×2 (09:00→21:21)
[2018-02-08] MEDS ORDERED: Furosemide 40mg tab ORAL SCH (09:00)
[2018-02-08] MEDS: Docusate 100mg cap ORAL SCH ×2 (09:00→21:21)
[2018-02-08] MEDS: Aspirin Baby 81mg ORAL SCH (09:23)
[2018-02-08] MEDS: Heparin 5000 units/ml inj SUBQ SCH ×2 (10:03→21:00)
--- NOTE | 2018-02-08 10:09 | General Progress Note ---
Assessment/Plan Assessment/Plan Repeat 2D Echo much improved cardiac contractility. LVEF 50%. Continue to diurese. Ambulate DC Planning Subjective Allergies: Coded Allergies: NO KNOWN DRUG ALLERGIES (Verified Allergy, Unknown, 06/20/15) Subjective No itching Much less sob Objective Last 24 Hour Vital Signs Date Time Temp Pulse Resp B/P (MAP) Pulse Ox O2 Delivery O2 Flow Rate FiO2 02/08/18 09:00 56 102/47 02/08/18 08:00 97.9 56 18 103/47 (65) 98 97.9 02/08/18 08:00 52 02/08/18 04:00 49 02/08/18 04:00 98.3 52 20 105/54 (71) 100 98.3 02/08/18 00:00 98.0 56 21 124/57 (79) 97 98.0 02/08/18 00:00 56 02/07/18 21:06 63 129/57 02/07/18 21:00 Nasal Cannula 3.0 02/07/18 20:00 63 02/07/18 20:00 98.5 63 23 129/57 (81) 97 98.5 02/07/18 16:00 97.5 56 20 112/53 (72) 97 97.5 02/07/18 16:00 59 02/07/18 12:00 61 02/07/18 12:00 97.7 59 18 112/52 (72) 98 97.7 Intake and Output 02/07/18 02/08/18 19:00 07:00 Intake Total 360 ml Output Total 700 ml Balance -340 ml Intake Oral 360 ml Output Urine Total 700 ml # Bowel Movements 1 Laboratory Tests 02/08/18 04:10: Sodium Level 138, Potassium Level 4.7, Chloride Level 103, Carbon Dioxide Level 28, Anion Gap 7, Blood Urea Nitrogen 51H, Creatinine 1.8H, Estimat Glomerular Filtration Rate , Glucose Level 84, Calcium Level 8.2L Height (Feet): 5 Height (Inches): 6.00 Weight (Pounds): 160 Objective CV RR Lungs few crackles Abd SNT . BS+ E + 3 EDEMA Shi Perez MD Feb 08, 2018 10:09
[2018-02-08 12:00] VITALS: BP 110/47
--- NOTE | 2018-02-08 15:33 | Cardiology Report ---
APPROVED REPORT EKG Measurement Heart [id number] Sinus rhythm with frequent premature ventricular complexes and premature atrial complexes Nonspecific T wave abnormality Prolonged QT Abnormal ECG
[2018-02-08 16:00] VITALS: BP 116/52
[2018-02-08 20:00] VITALS: BP 160/80
[2018-02-08] MEDS: Tamsulosin 0.4mg cap ORAL SCH (21:20)
--- NOTE | 2018-02-08 23:26 | Cardiology Progress Note ---
Assessment/Plan Assessment/Plan was hypotensive this morning hold furosemide Subjective Subjective The patient is resting, he was weak in the morning now he feels better Objective Last 24 Hour Vital Signs Date Time Temp Pulse Resp B/P (MAP) Pulse Ox O2 Delivery O2 Flow Rate FiO2 02/08/18 21:21 73 160/80 02/08/18 21:00 Nasal Cannula 3.0 02/08/18 20:00 97.9 73 20 160/80 (106) 99 97.9 02/08/18 20:00 63 02/08/18 16:00 59 02/08/18 16:00 97.9 58 18 116/52 (73) 95 97.9 02/08/18 12:00 62 02/08/18 12:00 97.7 54 18 110/47 (68) 97 97.7 02/08/18 09:00 56 102/47 02/08/18 09:00 Nasal Cannula 3.0 02/08/18 08:00 97.9 56 18 103/47 (65) 98 97.9 02/08/18 08:00 52 02/08/18 07:20 56 20 Nasal Cannula 2.0 28 02/08/18 04:00 49 02/08/18 04:00 98.3 52 20 105/54 (71) 100 98.3 02/08/18 00:00 98.0 56 21 124/57 (79) 97 98.0 02/08/18 00:00 56 General Appearance: no apparent distress, thin EENT: PERRL/EOMI Neck: no JVD Rhythm: NSR Cardiovascular: regular rhythm Respiratory/Chest: chest wall non-tender, decreased breath sounds Abdomen: non tender Extremities: moderate edema Intake and Output 02/07/18 02/08/18 19:00 07:00 Intake Total 360 ml Output Total 700 ml Balance -340 ml Intake Oral 360 ml Output Urine Total 700 ml # Bowel Movements 1 Laboratory Tests Test 02/08/18 04:10 Sodium Level 138 MMOL/L (136-145) Potassium Level 4.7 MMOL/L (3.5-5.1) Chloride Level 103 MMOL/L (98-107) Carbon Dioxide Level 28 MMOL/L (21-32) Anion Gap 7 mmol/L (5-15) Blood Urea Nitrogen 51 mg/dL (7-18) H Creatinine 1.8 MG/DL (0.55-1.30) H Estimat Glomerular Filtration Rate mL/min (>60) Glucose Level 84 MG/DL (74-106) Calcium Level 8.2 MG/DL (8.5-10.1) Yamileth Mathis MD Feb 08, 2018 23:26
[2018-02-09] VITALS: BP 131/63
[2018-02-09 04:00] VITALS: BP 149/63
[2018-02-09 04:21] LABS: ANION GAP 9 mmol/L (5-15); BLOOD UREA NITROGEN 56 mg/dL (7-18); CALCIUM 8.7 MG/DL (8.5-10.1); CARBON DIOXIDE 27 MMOL/L (21-32); CHLORIDE 102 MMOL/L (98-107); POTASSIUM 4.6 MMOL/L (3.5-5.1); SODIUM 138 MMOL/L (136-145)
[2018-02-09 08:00] VITALS: BP 109/45
[2018-02-09] MEDS: Carvedilol 12.5mg tab ORAL SCH (09:00)
[2018-02-09] MEDS: Heparin 5000 units/ml inj SUBQ SCH (09:00)
[2018-02-09] MEDS: Docusate 100mg cap ORAL SCH (09:11)
[2018-02-09] MEDS: Aspirin Baby 81mg ORAL SCH (09:11)
--- NOTE | 2018-02-09 10:29 | General Progress Note ---
Assessment/Plan Assessment/Plan Repeat 2D Echo much improved cardiac contractility. LVEF 50%. Continue to diurese. Ambulate DC to B+C. Med list called to his Rx Subjective Allergies: Coded Allergies: NO KNOWN DRUG ALLERGIES (Verified Allergy, Unknown, 06/20/15) Subjective No itching Much less sob Objective Last 24 Hour Vital Signs Date Time Temp Pulse Resp B/P (MAP) Pulse Ox O2 Delivery O2 Flow Rate FiO2 02/09/18 09:00 Nasal Cannula 3.0 02/09/18 09:00 55 109/45 02/09/18 08:00 98.2 55 20 109/45 (66) 100 98.2 02/09/18 04:00 97.9 65 18 149/63 (91) 95 97.9 02/09/18 04:00 59 02/09/18 00:00 97.4 58 18 131/63 (85) 98 97.4 02/09/18 00:00 57 02/08/18 21:21 73 160/80 02/08/18 21:00 Nasal Cannula 3.0 02/08/18 20:00 97.9 73 20 160/80 (106) 99 97.9 02/08/18 20:00 63 02/08/18 18:50 60 20 Nasal Cannula 2.0 28 02/08/18 16:00 59 02/08/18 16:00 97.9 58 18 116/52 (73) 95 97.9 02/08/18 12:00 62 02/08/18 12:00 97.7 54 18 110/47 (68) 97 97.7 Intake and Output 02/08/18 02/09/18 19:00 07:00 Intake Total 600 ml 300 ml Output Total 606 ml 1450 ml Balance -6 ml -1150 ml Intake Oral 600 ml 300 ml Output Urine Total 605 ml 1450 ml Stool Total 1 ml # Voids 1 # Bowel Movements 3 Laboratory Tests 02/09/18 03:57: Sodium Level 138, Potassium Level 4.6, Chloride Level 102, Carbon Dioxide Level 27, Anion Gap 9, Blood Urea Nitrogen 56H, Creatinine 2.0H, Estimat Glomerular Filtration Rate , Glucose Level 98, Calcium Level 8.7 Height (Feet): 5 Height (Inches): 6.00 Weight (Pounds): 156 Objective CV RR Lungs few crackles Abd SNT . BS+ E + 3 EDEMA Shi Perez MD Feb 09, 2018 10:29
[2018-02-09 12:00] VITALS: BP 110/52
--- NOTE | 2018-02-10 07:23 | Discharge Summary ---
Discharge Summary Discharge Summary _ DATE OF ADMISSION: 02/05/2018 DATE OF DISCHARGE: 02/09/2018 CONSULTANTS: Dr. Yamileth Hyde BRIEF HOSPITAL COURSE: Patient is an 87-year-old -[place] male, who was discharged last week, due to CHF and acute renal failure, was discharged to a [facility] [place] facility. He presented back to ED complaining of increased lower extremity swelling bilaterally. He was previously on Lasix and had elevated renal function. He reported increased difficulty refilling accompanied with gradual onset of leg swelling. On evaluation at ED, blood work showed elevated BNP 2933, troponin was 0.015. EKG done showed sinus bradycardia at the rate of 57 with motion artifact and nonspecific ST changes. Chest x-ray showed minimal increased interstitial markings in bilateral lung bases. He was given IV Lasix as well as breathing treatment. He was then admitted for further workup. He was followed by nurse quality. Patient has a history of coronary artery disease with decreased ejection fraction. He is status post coronary angiogram and angioplasty of the proximal LAD and circumflex in 2015, ejection fraction was very low at 30%. He continued to have heart failure and a repeat echocardiogram on April 2017 still showed ejection fraction of 35%. He was offered ICD placement, however, declined. During last admission at [facility], repeat echocardiogram showed dramatic improvement to almost 50%. Lasix dose was further decreased to 40 mg every other day. He was continued on slow and cautious diuresis. He had episodes of hypotension and dizziness, furosemide dose was decreased. Repeat echocardiogram showed improved cardiac contractility with LV ejection fraction of 50%. She underwent physical therapy evaluation. She was eventually discharged to [facility] [place]. FINAL DIAGNOSES: Acute on chronic congestive heart failure, with mild diastolic dysfunction Fluid retention secondary to above Severe left ventricular dysfunction due to ischemic cardiomyopathy DISPOSITION: Patient was discharged to a [facility] [place]. DISCHARGE MEDICATIONS: Refer to Discharge Medication List. DISCHARGE INSTRUCTIONS: Follow up within a week. I have been assigned to dictate discharge summary on this account, and I was not involved in the patient's management. Edelmira Ventura NP Feb 10, 2018 07:23
[2018-02-10] MEDS ORDERED: Furosemide 40mg tab ORAL SCH (09:00)
== END 2018-02-09 13:45 | disposition home or self-care (01) | DRG 291 ==
LOC: EDBD 07:34 → EMR 08:00 → 2E 09:28 → EDBEDREQ 09:43 → 2E 02-06 15:25
DX: I13.0 Hypertensive heart and chronic kidney disease with heart failure and stage 1 through stage 4 chronic kidney disease, or unspecified chronic kidney disease (principal); I50.33 Acute on chronic diastolic (congestive) heart failure; N18.3 Chronic kidney disease, stage 3 (moderate); N40.0 Benign prostatic hyperplasia without lower urinary tract symptoms; I25.5 Ischemic cardiomyopathy; G25.81 Restless legs syndrome; I25.10 Atherosclerotic heart disease of native coronary artery without angina pectoris; M1A.9XX0 Chronic gout, unspecified, without tophus (tophi); J44.9 Chronic obstructive pulmonary disease, unspecified; Z87.891 Personal history of nicotine dependence; R00.1 Bradycardia, unspecified; I95.9 Hypotension, unspecified
CPT/HCPCS: 36415; 36600; 71045; 80048; 80053; 81003; 82550; 82553; 82803; 83735; 83880; 84484; 85025; 87081; 93005; 93306; 94664; 99285